=== PATIENT | female | born 2000 | race Caucasian/White ===

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

== ENCOUNTER → 2018-01-21 | Outpatient (CLI) | payer OTHER ==
[2018-01-21 19:33] LABS: HCG, SERUM QUANTITATIVE < 1.0 MIU/ML
== END ==
LOC: M SMT 12:06
DX: N93.8 Other specified abnormal uterine and vaginal bleeding (principal)
CPT/HCPCS: 84702

== ENCOUNTER → 2018-04-04 | Outpatient (CLI) | payer OTHER ==
[2018-04-04 19:40] LABS: BASO % 0.4 % (0.0-1.0); CONTROL LINE MONO RF C INT CTR LINE PRESENT; EOS % 0.1 % (0.0-3.0); HEMATOCRIT 41.4 % (36.0-47.0); IMMATURE GRANULOCYTE % 0.3 % (0-3.0); LYMPH # 1.8 10^3/uL (1.5-6.5); MEAN CORPUSCULAR HEMOGLOBIN 30.6 pg (27.0-33.0); MEAN CORPUSCULAR HGB CONC 33.8 g/dl (32.0-36.5); MEAN CORPUSCULAR VOLUME 90.6 fl (80.0-96.0); MONO # 0.5 10^3/uL (0.0-0.8); MONO % 6.4 % (0.0-5.0); MONO REFLEX EBV COMP NEGATIVE (NEGATIVE); NEUTROPHILS # 5.1 10^3/uL (1.8-7.7); NEUTROPHILS % 68.8 % (36.0-66.0); PLATELET COUNT, AUTOMATED 237 10^3/uL (150-450); RED BLOOD COUNT 4.57 10^6/uL (4.00-5.40); RED CELL DISTRIBUTION WIDTH 12.3 % (11.5-14.5); WHITE BLOOD COUNT 7.4 10^3/uL (4.0-10.0)
[2018-04-04 20:02] LABS: ALBUMIN/GLOBULIN RATIO 1.14 (1.00-1.93); ALKALINE PHOSPHATASE 76 U/L (45-117); ALT/SGPT 16 U/L (12-78); ANION GAP 9 MEQ/L (8-16); AST/SGOT 7 U/L (7-37); BILIRUBIN,TOTAL 1.6 MG/DL (0.2-1.0); BLOOD UREA NITROGEN 5 MG/DL (7-18); CALCIUM LEVEL 8.7 MG/DL (8.5-10.1); CARBON DIOXIDE LEVEL 26 MEQ/L (21-32); CHLORIDE LEVEL 108 MEQ/L (98-107); CREATININE FOR GFR 0.73 MG/DL (0.55-1.30); FREE T4 1.26 NG/DL (0.78-1.33); GLUCOSE, FASTING 89 MG/DL (70-100); POTASSIUM SERUM 4.1 MEQ/L (3.5-5.1); SODIUM LEVEL 143 MEQ/L (136-145); TOTAL PROTEIN 7.5 GM/DL (6.4-8.2)
[2018-04-08 15:32] LABS: EBV AB TO NUCLEAR ANTIGEN <18.0 U/mL (0.0-17.9); EBV VIRAL CAPSID AG IgG <18.0 U/mL (0.0-17.9); EBV VIRAL CAPSID AG IgM <36.0 U/mL (0.0-35.9); Lyme Disease IgG Ab 18 kDa Ban Absent (.); Lyme Disease IgG Ab 23 kDa Ban Absent (.); Lyme Disease IgG Ab 28 kDa Ban Absent (.); Lyme Disease IgG Ab 30 kDa Ban Absent (.); Lyme Disease IgG Ab 39 kDa Ban Absent (.); Lyme Disease IgG Ab 41 kDa Ban Absent (.); Lyme Disease IgG Ab 45 kDa Ban Absent (.); Lyme Disease IgG Ab 58 kDa Ban Absent (.); Lyme Disease IgG Ab 66 kDa Ban Absent (.); Lyme Disease IgG Ab 93 kDa Ban Absent (.); Lyme Disease IgG West Blot Int Negative (.); Lyme Disease IgG/IgM Antibodie 0.93 ISR (0.00-0.90); Lyme Disease IgM Ab 23 kDa Ban Absent (.); Lyme Disease IgM Ab 39 kDa Ban Absent (.); Lyme Disease IgM Ab 41 kDa Ban Absent (.); Lyme Disease IgM Ab Quantitati 1.16 index (0.00-0.79); Lyme Disease IgM West Blot Int Negative (.)
== END ==
LOC: M ADAMS 13:33
DX: R42 Dizziness and giddiness (principal)
CPT/HCPCS: 84443

== ENCOUNTER → 2018-06-13 | Outpatient (REF) | payer OTHER | LOC: M LAB REF 12:29 | DX: N30.01 Acute cystitis with hematuria (principal) ==

== ENCOUNTER → 2018-12-11 | Outpatient (CLI) | payer OTHER ==
[~2018-12-11] MED LIST: BACT800T5 PO; ESCI10TA2 PO; FLUO20CA19 PO; HYDR-3363; IBUP200C25 PO; NAPR-885 PO; NEXP1IMP SC; PYRI1TAB5 PO
[2018-12-11 17:41] LABS: BASO % 0.2 % (0.0-1.0); EOS % 0.1 % (0.0-3.0); HEMATOCRIT 44.6 % (36.0-47.0); LYMPH # 2.2 10^3/uL (1.5-6.5); LYMPH % 20.8 % (24.0-44.0); MEAN CORPUSCULAR HEMOGLOBIN 30.7 pg (27.0-33.0); MEAN CORPUSCULAR HGB CONC 33.6 g/dl (32.0-36.5); MEAN CORPUSCULAR VOLUME 91.2 fl (80.0-96.0); MONO # 0.6 10^3/uL (0.0-0.8); NEUTROPHILS # 7.6 10^3/uL (1.8-7.7); NEUTROPHILS % 72.6 % (36.0-66.0); PLATELET COUNT, AUTOMATED 222 10^3/uL (150-450); RED BLOOD COUNT 4.89 10^6/uL (4.00-5.40); WHITE BLOOD COUNT 10.5 10^3/uL (4.0-10.0)
[2018-12-11 18:12] LABS: ALBUMIN 4.4 GM/DL (3.2-5.2); ALT/SGPT 13 U/L (12-78); BILIRUBIN,TOTAL 1.4 MG/DL (0.2-1.0); BLOOD UREA NITROGEN 5 MG/DL (7-18); CARBON DIOXIDE LEVEL 26 MEQ/L (21-32); CHLORIDE LEVEL 109 MEQ/L (98-107); CREATININE FOR GFR 0.82 MG/DL (0.55-1.30); GLUCOSE, FASTING 104 MG/DL (70-100); POTASSIUM SERUM 3.6 MEQ/L (3.5-5.1); SODIUM LEVEL 142 MEQ/L (136-145); TOTAL PROTEIN 7.4 GM/DL (6.4-8.2)
== END ==
LOC: M LAB 16:56
PROVIDERS: ATTEND Physician Assistant
DX: R19.7 Diarrhea, unspecified (principal); R10.30 Lower abdominal pain, unspecified

== ENCOUNTER → 2018-12-11 | Outpatient (REF) | payer OTHER | LOC: M LAB REF 18:59 | PROVIDERS: ATTEND Physician Assistant | DX: R19.7 Diarrhea, unspecified (principal); R10.30 Lower abdominal pain, unspecified ==

== ENCOUNTER 2019-01-15 13:47 | Emergency (ER) | payer OTHER ==
[~2019-01-15] VITALS: Ht 160 cm; Wt 58.7 kg
[2019-01-15] MEDS ORDERED: ACET-683 PO (13:51)
[2019-01-15] MEDS ORDERED: ONDANSETRON 4 MG ORAL DISINTEGRATING TAB (Q0162 PER 1MG) PO ONE (15:15)
--- NOTE | 2019-01-15 15:58 | REP ---
Head CT without contrast: History: Head injury. Comparison study: October 01, 2013. CT findings: Bone window settings demonstrate an intact bony calvarium. There is no evidence of skull fracture or incidental bony calvarial lesion. The visualized paranasal sinuses appear clear. No intraorbital abnormality is seen. On soft tissue window setting images; the lateral, third, and fourth ventricles are normal in size and position. Olvera-white differentiation pattern is normal above and below the tentorium. There are is no evidence of intracranial hemorrhage. No mass, edema, infarction, or midline shift is seen. No extra-axial fluid collection is appreciated. Impression: Negative noncontrast head CT. Electronically Signed by Andrew Perez MD 01/15/2019 03:50 P
[2019-01-15 16:17] VITALS: BP 111/79
== END 2019-01-15 16:41 | disposition home or self-care (01) ==
LOC: M ED 13:47
DX: S09.90XA Unspecified injury of head, initial encounter (principal); W22.8XXA Striking against or struck by other objects, initial encounter; Y92.89 Other specified places as the place of occurrence of the external cause; Y99.0 Civilian activity done for income or pay; Z88.0 Allergy status to penicillin; F17.210 Nicotine dependence, cigarettes, uncomplicated
CPT/HCPCS: 36415; 70450; 84702; 99283; Q0162

== ENCOUNTER → 2019-02-26 | Outpatient (CLI) | payer OTHER ==
[~2019-02-26] MED LIST changes: +ACET-683 PO
[2019-02-26 19:34] LABS: FREE T4 0.9 NG/DL (0.78-1.33); THYROID STIMULATING HORMONE 0.78 uIU/ML (0.463-3.98)
[2019-02-26 19:35] LABS: LUTEINIZING HORMONE 2.1 mIU/mL; PROLACTIN 5.5 NG/ML
[2019-02-26 19:36] LABS: FOLLICLE STIMULATING HORMONE 6.6 mIU/mL
[2019-02-27 09:53] LABS: ESTRADIOL 35.4 PG/ML
== END ==
LOC: M LABDRWAD 14:14
PROVIDERS: ATTEND Obstetrics & Gynecology
DX: N97.9 Female infertility, unspecified (principal)

== ENCOUNTER 2019-05-13 20:32 | Emergency (ER) | payer OTHER ==
[~2019-05-13] VITALS: Ht 160 cm; Wt 52.3 kg
[2019-05-13 21:31] LABS: BILIRUBIN, URINE MANUAL OBSCURED (NEGATIVE); GLUCOSE, URINE (UA) MANUAL OBSCURED mg/dL (NEGATIVE); KETONE, URINE MANUAL OBSCURED mg/dL (NEGATIVE); UROBILINOGEN, URINE MANUAL OBSCURED mg/dl (NORMAL)
[2019-05-13 21:33] LABS: BACTERIA, URINE LARGE AMOUNT; HYALINE CAST, URINE NONE SEEN /lpf (0-1); SQUAMOUS EPITHELIAL CELL URINE LARGE AMOUNT /hpf (SMALL AMT)
[2019-05-13] MEDS ORDERED: NITROFURANTOIN (MACROBID) 100 MG CAP PO ONE (22:00)
[2019-05-13] MEDS ORDERED: PHENAZOPYRIDINE 100 MG TAB PO ONE (22:00)
[2019-05-13] MEDS ORDERED: PYRI1TAB5 PO (22:01)
[2019-05-13] MEDS ORDERED: MACR100C43 PO (22:01)
[2019-05-13 22:06] VITALS: BP 118/65
== END 2019-05-13 22:07 | disposition home or self-care (01) ==
LOC: M ED 20:32
DX: N39.0 Urinary tract infection, site not specified (principal); A56.2 Chlamydial infection of genitourinary tract, unspecified; Z88.0 Allergy status to penicillin

== ENCOUNTER 2019-05-15 15:31 | Emergency (ER) | payer OTHER ==
[~2019-05-15] VITALS: Ht 160 cm; Wt 52.5 kg
[~2019-05-15 15:31] MED LIST changes: +MACR100C43 PO
[2019-05-15 17:01] LABS: BASO % 0.4 % (0.0-1.0); EOS % 0.1 % (0.0-3.0); HEMATOCRIT 47.1 % (36.0-47.0); HEMOGLOBIN 15.7 g/dl (12.0-15.5); LYMPH # 1.3 10^3/uL (1.5-5.0); LYMPH % 15.7 % (24.0-44.0); MEAN CORPUSCULAR HEMOGLOBIN 31.7 pg (27.0-33.0); MEAN CORPUSCULAR HGB CONC 33.3 g/dl (32.0-36.5); MEAN CORPUSCULAR VOLUME 95.2 fl (80.0-96.0); MONO # 0.4 10^3/uL (0.0-0.8); MONO % 4.5 % (0.0-5.0); NEUTROPHILS # 6.5 10^3/uL (1.5-8.5); NEUTROPHILS % 79.1 % (36.0-66.0); PLATELET COUNT, AUTOMATED 212 10^3/uL (150-450); RED BLOOD COUNT 4.95 10^6/uL (4.00-5.40); WHITE BLOOD COUNT 8.2 10^3/uL (4.0-10.0)
[2019-05-15 17:12] LABS: APPEARANCE, URINE MANUAL HAZY (CLEAR); COLOR, URINE MANUAL ORANGE (YELLOW); SPECIFIC GRAVITY,URINE MANUAL 1.025 (1.002-1.035)
[2019-05-15 17:13] LABS: BILIRUBIN, URINE MANUAL OBSCURED (NEGATIVE); BLOOD URINE MANUAL OBSCURED (NEGATIVE); GLUCOSE, URINE (UA) MANUAL NEGATIVE (NEGATIVE); KETONE, URINE MANUAL OBSCURED mg/dL (NEGATIVE); LEUKOCYTE ESTERASE, URINE MAN OBSCURED (NEGATIVE); NITRITE, URINE MANUAL OBSCURED (NEGATIVE); PROTEIN, URINE MANUAL OBSCURED mg/dL (NEGATIVE); UROBILINOGEN, URINE MANUAL OBSCURED mg/dl (NORMAL)
[2019-05-15 17:14] LABS: BACTERIA, URINE NONE SEEN; HYALINE CAST, URINE NONE SEEN /lpf (0-1); RBC, URINE 0-1 /hpf (0-3); SQUAMOUS EPITHELIAL CELL URINE NONE SEEN /hpf (SMALL AMT); WBC, URINE 0-1 /hpf (0-3)
[2019-05-15] MEDS ORDERED: NS 1,000 ML IV ONE (17:30)
[2019-05-15] MEDS ORDERED: KETOROLAC 30 MG/ML VIAL (J1885) IV ONE (17:30)
[2019-05-15] MEDS ORDERED: ONDANSETRON 4MG/2ML VIAL (J2405) IV ONE (17:30)
[2019-05-15] MEDS ORDERED: ISOVUE-370 76% 100ML VIAL (Q9967) As Ordered ONE (17:30)
[2019-05-15 17:47] LABS: ALBUMIN 4.6 GM/DL (3.2-5.2); BILIRUBIN,DIRECT 0.2 MG/DL (0.0-0.2); BILIRUBIN,TOTAL 1.2 MG/DL (0.2-1.0)
--- NOTE | 2019-05-15 18:02 | REPVR ---
EXAM: CT Abdomen and Pelvis With Contrast EXAM DATE/TIME: 05/15/2019 5:28 PM CLINICAL HISTORY: 18 years old, female; Abdominal pain; Flank; Other: Bilat; Additional info: B flank/abd pain TECHNIQUE: Imaging protocol: Computed tomography of the abdomen and pelvis with intravenous contrast. Radiation optimization: All CT scans at this facility use at least one of these dose optimization techniques: automated exposure control; mA and/or kV adjustment per patient size (includes targeted exams where dose is matched to clinical indication); or iterative reconstruction. Contrast material: ISOVUE 370; Contrast volume: 100 ml; Contrast route: IV; COMPARISON: CT ABD PELVIS W/O CONTRAST 01/05/2014 1:56 AM FINDINGS: Liver: Normal. No mass. Gallbladder and bile ducts: Normal. No calcified stones. No ductal dilation. Pancreas: Normal. No ductal dilation. Spleen: Normal. No splenomegaly. Adrenals: Normal. No mass. Kidneys and ureters: Normal. No hydronephrosis. Stomach and bowel: Unremarkable. No obstruction. No mucosal thickening. Appendix: No evidence of appendicitis. Intraperitoneal space: Unremarkable. No free air. No significant fluid collection. Vasculature: Unremarkable. No abdominal aortic aneurysm. Lymph nodes: Unremarkable. No enlarged lymph nodes. Bladder: Unremarkable as visualized. Reproductive: Unremarkable as visualized. Bones/joints: Unremarkable. No acute fracture. Soft tissues: Unremarkable. IMPRESSION: No acute findings. Electronically signed by: Ritesh Berman On 05/15/2019 18:01:54 PM
[2019-05-15] MEDS ORDERED: CIPR-249 PO (20:24)
[2019-05-15] MEDS ORDERED: KETO10TAB PO (20:24)
[2019-05-15 20:50] VITALS: BP 125/69
== END 2019-05-15 20:52 | disposition home or self-care (01) ==
LOC: M ED 15:31
DX: N39.0 Urinary tract infection, site not specified (principal); F41.9 Anxiety disorder, unspecified; Z88.0 Allergy status to penicillin; Z79.899 Other long term (current) drug therapy
CPT/HCPCS: 74177; 80047; 80076; 81000; 83605; 83690; 84702; 85025; 87040; 96360; 96361; 96375; 99284; J1885; J2405; Q9967

== ENCOUNTER → 2019-06-26 | Outpatient (CLI) | payer OTHER ==
[~2019-06-26] MED LIST changes: +CIPR-249 PO; +KETO10TAB PO
[2019-06-26 20:53] LABS: BASO # 0.1 10^3/uL (0.0-0.2); BASO % 0.5 % (0.0-1.0); EOS # 0.1 10^3/uL (0.0-0.5); HEMATOCRIT 45.9 % (36.0-47.0); HEMOGLOBIN 15.1 g/dl (12.0-15.5); LYMPH # 2.2 10^3/uL (1.5-5.0); LYMPH % 22.1 % (24.0-44.0); MEAN CORPUSCULAR HEMOGLOBIN 30.6 pg (27.0-33.0); MEAN CORPUSCULAR HGB CONC 32.9 g/dl (32.0-36.5); MEAN CORPUSCULAR VOLUME 93.1 fl (80.0-96.0); MONO # 0.9 10^3/uL (0.0-0.8); MONO % 8.8 % (0.0-5.0); NEUTROPHILS # 6.8 10^3/uL (1.5-8.5); NEUTROPHILS % 67.2 % (36.0-66.0); PLATELET COUNT, AUTOMATED 253 10^3/uL (150-450); RED BLOOD COUNT 4.93 10^6/uL (4.00-5.40)
[2019-06-26 21:11] LABS: ALBUMIN 4.1 GM/DL (3.2-5.2); ALT/SGPT 19 U/L (12-78); BILIRUBIN,TOTAL 1.1 MG/DL (0.2-1.0); BLOOD UREA NITROGEN 7 MG/DL (7-18); CALCIUM LEVEL 8.6 MG/DL (8.5-10.1); CARBON DIOXIDE LEVEL 24 MEQ/L (21-32); CHLORIDE LEVEL 106 MEQ/L (98-107); FREE T4 1.39 NG/DL (0.78-1.33); GLUCOSE, FASTING 94 MG/DL (70-100); HCG, SERUM QUANTITATIVE 183 MIU/ML; SODIUM LEVEL 138 MEQ/L (136-145); TOTAL PROTEIN 7.7 GM/DL (6.4-8.2)
== END ==
LOC: M WUC 16:28
PROVIDERS: ATTEND Physician Assistant
DX: R63.4 Abnormal weight loss (principal); J20.9 Acute bronchitis, unspecified; Z33.1 Pregnant state, incidental

== ENCOUNTER → 2019-08-18 | Outpatient (CLI) | payer OTHER ==
[2019-08-18 17:08] LABS: BASO % 0.2 % (0.0-1.0); EOS % 0.1 % (0.0-3.0); HEMATOCRIT 42.2 % (36.0-47.0); HEMOGLOBIN 13.5 g/dl (12.0-15.5); LYMPH # 1.4 10^3/uL (1.5-5.0); LYMPH % 10.8 % (24.0-44.0); MONO # 0.6 10^3/uL (0.0-0.8); MONO % 4.3 % (0.0-5.0); PLATELET COUNT, AUTOMATED 262 10^3/uL (150-450); RED BLOOD COUNT 4.35 10^6/uL (4.00-5.40); WHITE BLOOD COUNT 13.1 10^3/uL (4.0-10.0)
[2019-08-18 20:02] LABS: CHLAMYDIA DNA AMPLIFICATION NEGATIVE (NEGATIVE); GC DNA AMPLIFICATION NEGATIVE (NEGATIVE)
[2019-08-19 13:25] LABS: HEPATITIS C VIRUS ABY INDEX 0.1 INDEX (<0.8); HIV 1&2 SCREEN CENTAUR NEGATIVE (NEGATIVE); RUBELLA IgG QUALITATIVE IMMUNE (IMMUNE)
== END ==
LOC: M WUC 14:12
PROVIDERS: ATTEND Advanced Practice Midwife
DX: Z34.81 Encounter for supervision of other normal pregnancy, first trimester (principal)

== ENCOUNTER → 2019-10-07 | Outpatient (CLI) | payer OTHER ==
--- NOTE | 2019-10-08 05:15 | REP ---
Clinical: Anatomical evaluation. Comparison: None . Findings: Examination demonstrates a single live intrauterine in cephalic presentation. motion is identified by technologist. Placenta is noted anteriorly, grade I and appears moderately heterogeneous and lobulated with poorly defined borders. There is no evidence for placenta previa or abruption. Cervix measures 3.8 cm in length and appears closed. No evidence for nuchal cord. Prominent amount of debris within the amniotic fluid. Gestational age by current measurements 18 weeks 3 days with REED 03/06/2020 . FHR equals 157 beats per minute. BPD 4.3 cm 19 weeks 0 days HC 15.5 cm 18 weeks 3 days AC 12.8 cm 18 weeks 3 days FL 2.8 cm 18 weeks 4 days HC/AC ratio 1.21 Estimated weight 242 grams ( 46th percentile). Anatomical assessment demonstrates normal structures including cranium, choroid plexus, cavum, cerebellum/posterior fossa, facial features, lungs, four-chamber heart/ventricular outflow tracts, diaphragm, stomach, cord insertion/three-vessel cord, kidneys/bladder, spine, and extremities. Impression: 1. Single live intrauterine in cephalic presentation. Anatomical assessment is complete and normal. 2. The placenta appears considerably heterogeneous and a lobulated with complex areas possibly reflecting multiple venous lakes although further investigation and follow-up may be warranted. There is no obvious evidence for placenta abruption. 3. Significant amount of complex fluid and debris noted in the amniotic fluid.
== END ==
LOC: M WHC 08:42
PROVIDERS: ATTEND Advanced Practice Midwife
DX: Z34.92 Encounter for supervision of normal pregnancy, unspecified, second trimester (principal); Z3A.18 18 weeks gestation of pregnancy

== ENCOUNTER → 2019-11-19 | Outpatient (REF) | payer OTHER ==
[~2019-11-19] MED LIST changes: -FLUO20CA19 PO; +FLUO20CA22 PO
[2019-11-19 14:35] LABS: HEMATOCRIT 39.7 % (36.0-47.0); HEMOGLOBIN 13.3 g/dl (12.0-15.5); MEAN CORPUSCULAR HEMOGLOBIN 33.2 pg (27.0-33.0); MEAN CORPUSCULAR HGB CONC 33.5 g/dl (32.0-36.5); PLATELET COUNT, AUTOMATED 241 10^3/uL (150-450); RED BLOOD COUNT 4.01 10^6/uL (4.00-5.40); WHITE BLOOD COUNT 13.8 10^3/uL (4.0-10.0)
== END ==
LOC: M PLALAB 10:04
PROVIDERS: ATTEND Obstetrics & Gynecology
DX: O99.332 Smoking (tobacco) complicating pregnancy, second trimester (principal)

== ENCOUNTER 2019-12-07 06:48 | Outpatient (CLI) | payer OTHER ==
[~2019-12-07] VITALS: Ht 160 cm; Wt 61.8 kg
[2019-12-07 07:05] VITALS: BP 119/75
[2019-12-07 08:02] VITALS: BP 126/82
--- NOTE | 2019-12-07 09:46 | IPNPDOC ---
Text Note Date of Service The patient was seen on 12/07/19. NOTE Subjective: Patient is a 19-year-old female who is a at 27.2 weeks gestation with an REED of 03/05/20 based off of her LMP and consistent with her first trimester ultrasound. Her has been complicated by smoking, anxiety, depression, panic disorder, ADHD (which she has not taken medication for in 2 years). She presented to labor and delivery with complaints of feeling dizzy, sweaty, and shaky when she got up to go to the bathroom at 0330. She also reported some cramping and a small amount of bloody mucous that she reports is coming from her rectum. She is very adamant that the mucous is coming from her rectum and not her vagina. She reports that since she has been in the hospital her cramping has improved. she states she hasn't eaten anything today. Objective: VS and labs: see below. FHR 130, moderate variability, positive accelerations. Contractions: uterine irritability noted that resolved after fluid intake. EFM appropriate for gestational age. A+O x3. Respiratory rate is regular with no use of accessory muscles. Abdomen gravid and soft without tenderness to palpation. Physical perineal and rectal exam performed. Small he morrhoid that was not inflamed was noted. No discharge or mucous noted at introitus. Assessment: IUP at 27.2 weeks gestation, hypogylcemic episode, rectal mucous. Plan: Patient discharged to home. Reviewed glucose tolerance test results with no anemia but 1 hour glucose test of 48. Patient encouraged to increase fluid intake and to eat every 2-3 hours. Reviewed appropriate diet to help maintain blood sugar and decrease hypoglycemic events. Given note for work so she can take a break every 2-3 hours to have a snack. labor precautions reviewed. Reviewed access to care, kick count, labor signs and danger signs to report. She is to go to her routine OB appointment on 12/17/19 Rosie AVALOS, I+O Rosie AVALOS, I+O Vital Signs Date Time Temp Pulse Resp B/P (MAP) Pulse Ox O2 Delivery O2 Flow Rate FiO2 12/07/19 07:05 98.3 85 16 119/75 (90) 100 Room Air ARMIDA CASTILLO CNM Dec 07, 2019 09:46
[2019-12-07 15:15] LABS: APPEARANCE, URINE CLEAR (CLEAR); BACTERIA, URINE AUTO NEGATIVE (NEGATIVE); BILIRUBIN, URINE AUTO NEGATIVE (NEGATIVE); BLOOD, URINE BLOOD NEGATIVE (NEGATIVE); COLOR, URINE STRAW (YELLOW); GLUCOSE, URINE (UA) AUTO NEGATIVE (NEGATIVE); KETONE, URINE AUTO NEGATIVE (NEGATIVE); LEUKOCYTE ESTERASE, URINE AUTO NEGATIVE (NEGATIVE); NITRITE, URINE AUTO NEGATIVE (NEGATIVE); PROTEIN, URINE AUTO NEGATIVE (NEGATIVE); RBC, URINE AUTO 0 /HPF (0-3); SQUAMOUS EPITHELIAL CELL UR AU 0 /HPF (0-6); UROBILINOGEN, URINE AUTO 0.2 mg/dL (0.0-2.0); WBC, URINE AUTO 0 /HPF (0-3)
== END 2019-12-07 09:51 | disposition home or self-care (01) ==
LOC: M LDO 06:48
PROVIDERS: ATTEND Specialist
DX: O99.810 Abnormal glucose complicating pregnancy (principal); E16.2 Hypoglycemia, unspecified; O99.333 Smoking (tobacco) complicating pregnancy, third trimester; F17.200 Nicotine dependence, unspecified, uncomplicated; O99.343 Other mental disorders complicating pregnancy, third trimester; F32.9 Major depressive disorder, single episode, unspecified; F41.0 Panic disorder [episodic paroxysmal anxiety]; F90.9 Attention-deficit hyperactivity disorder, unspecified type; Z3A.27 27 weeks gestation of pregnancy

== ENCOUNTER → 2020-02-15 | Outpatient (REF) | payer OTHER | LOC: M SFHCWAGY 17:29 | PROVIDERS: ATTEND Advanced Practice Midwife | DX: O99.333 Smoking (tobacco) complicating pregnancy, third trimester (principal) ==

== ENCOUNTER 2020-02-18 02:47 | Inpatient (IN) | payer OTHER ==
[2020-02-18] VITALS (40 sets, daily range): BP systolic 98–174; BP diastolic 55–93
[~2020-02-18] VITALS: Ht 160 cm; Wt 63.5 kg
[2020-02-18] MEDS ORDERED: LACTATED RINGER'S 1000 ML IV STA (06:11)
[2020-02-18] MEDS ORDERED: LR 1,000 ML IV SCH (06:11)
[2020-02-18 06:46] LABS: HEMATOCRIT 42.5 % (36.0-47.0); HEMOGLOBIN 14.2 g/dl (12.0-15.5); MEAN CORPUSCULAR HEMOGLOBIN 31.4 pg (27.0-33.0); MEAN CORPUSCULAR HGB CONC 33.4 g/dl (32.0-36.5); PLATELET COUNT, AUTOMATED 238 10^3/uL (150-450); RED BLOOD COUNT 4.52 10^6/uL (4.00-5.40); WHITE BLOOD COUNT 22.9 10^3/uL (4.0-10.0)
--- NOTE | 2020-02-18 07:07 | HPEPDOC ---
Obstetrical History & Physical General Date of Admission Feb 18, 2020 at 06:09 Primary Care Physician: ARMIDA CASTILLO CNM History of Present Illness Patient is a at 37.5 weeks gestation with an REED of 03/05/20 based off of her LMP and consistent with her first trimester ultrasound. She initiated care in her first trimester of . Her has been complicated by anxiety, depression, panic disorder, ADHD, smoker. She is not taking any medications for her psychiatric issues. She reports contractions that started last night at 0130. She reports active movement, scant bloody show. She denies leaking of fluid. 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 deficit disorder, Depression * Smoker: current smoker Alcohol: Denies Drugs: denies Abuse Violence Screening Have you been hit/kicked/slapp: No Have you been sexually assault: No Allergies Coded Allergies: Penicillins (Verified Allergy, Unknown, 01/15/19) Physical Examination Physical Examination GENERAL: Alert and oriented times three. BREAST: . ABDOMEN: Gravid and non-tender to touch. FETUS: Is vertex (VTX) by sterile vaginal examination (SVE), fetus is vertex (VTX) by Axel. HEART RATE: Regular rate and rhythm. LUNGS: Clear to auscultation (CTA). EXTREMITIES: No edema. No clonus. Deep tendon reflexes (DTRs) + 2. Vital Signs/I&O Vital Signs Date Time Temp Pulse Resp B/P (MAP) Pulse Ox O2 Delivery O2 Flow Rate FiO2 02/18/20 03:16 96.9 89 16 117/70 (86) Room Air Laboratory Data 24H LABS Laboratory Tests 2 02/18/20 06:18: Serology Scanned Report Hepatitis B Testing Urine Culture: No Growth Pertinent Laboratoy Data Blood Type: O+ RBC Antibody Screen: Negative HIV: Negative Hepatitis B: Negative Hepatitis C: Negative Rapid Plasma Reagin: Nonreactive Rubella: Immune Chlamydia/Gonorrhea: Negative Group B Streptococcus: Positive Glucose Tolerance Test: 48 Vaginal Examination Dilation: 4 cm Effacement: 100% Station: 0 Presentation: Cephalic presentation Position: Vertex (occiput) Assessment Heart Rate (FHR): 120 Variability: Moderate Accelerations: Positive Decelerations: None Tocometer Contractions: Yes Frequency: regular Multi-drug resistant Organism: No history of MDRO Assessment/Plan Assessment IUP at 37.5 week gestation GBS negative Category I FHR tracing active labor Plan Admit to L&D. OOB ad marta. Diet:clears. Group B Streptococcus (GBS) negative. Labs and intravenous (IV) per unit protocol. Anesthesia consult per patient's request. Lactated Ringers (LR): Bolus 800 mL, then at 125 mL/hr. Anticipate cervical change and normal spontaneous delivery (). C-S as appropriate. ARMIDA CASTILLO CNM Feb 18, 2020 07:07
[2020-02-18] MEDS ORDERED: FENTANYL 2MCG/ML ROPIVACAINE 0.2% IN 0.9% NACL 100ML IVBAG As Ordered ONE (07:09)
[2020-02-18] MEDS ORDERED: OXYTOCIN 30 UNITS IN 0.9% NaCl 500ML IV BAG (J2590) As Ordered ONE (07:48)
[2020-02-18] MEDS ORDERED: EPIDURAL/PCA KEYS XX PRN (08:45)
[2020-02-18] MEDS ORDERED: ePHEDrine SULFATE 25 MG/5 ML(5MG/ML) SYRINGE IV PRN (08:45)
[2020-02-18] MEDS ORDERED: EPIDURAL COMMENT XX SCH (08:45)
[2020-02-18] MEDS ORDERED: ONDANSETRON 4MG/2ML VIAL IV PRN ×2 (08:45→15:15)
[2020-02-18] MEDS ORDERED: diphenhydrAMINE 50MG/ML VIAL (J1200) IV PRN (08:45)
[2020-02-18] MEDS ORDERED: REFRIGERATOR IV KEYS XX PRN (08:45)
[2020-02-18] MEDS ORDERED: LACTATED RINGER'S 1000 ML IV PRN (08:45)
[2020-02-18] MEDS ORDERED: NALOXONE INJ 0.4MG/1ML VIAL (J2310 PER 1MG) IV PRN (08:45)
[2020-02-18] MEDS ORDERED: FENTANYL/ROPIVACAINE/NACL BAG 100 ML EPIDURAL SCH (08:45)
[2020-02-18] MEDS: PRENATAL VITAMINS CHEWABLE TABLET PO SCH (09:00)
[2020-02-18] MEDS ORDERED: OXYTOCIN DRIP 30 UNITS in IV 1 EA IV SCH (13:59)
[2020-02-18] MEDS ORDERED: DIBUCAINE 1% OINTMENT 30GM TOP PRN (14:00)
[2020-02-18] MEDS ORDERED: DOCUSATE SODIUM 100 MG CAP PO PRN (14:00)
[2020-02-18] MEDS ORDERED: MEASLES,MUMPS,RUBELLA VACCINE INJ (MMR-II) (90707) SC SCH (14:00)
[2020-02-18] MEDS ORDERED: MOM 30ML SUSPENSION UDC PO PRN (14:00)
[2020-02-18] MEDS ORDERED: ANUSOL HC CREAM 30GM TOP PRN (14:00)
[2020-02-18] MEDS ORDERED: METHYLERGONOVINE MALEATE 0.2 MG TAB PO PRN (14:00)
[2020-02-18] MEDS ORDERED: RHOGAM 300 MCG (1500 IU) INJ (J2790) IM SCH (14:00)
[2020-02-18] MEDS ORDERED: IBUPROFEN 600 MG TAB PO PRN (14:00)
[2020-02-18] MEDS ORDERED: ACETAMINOPHEN TAB 650MG DOSE (2X325MG) PO PRN (14:00)
[2020-02-18] MEDS ORDERED: ACETAMINOPHEN 500 MG TAB PO PRN (14:00)
[2020-02-18] MEDS: IBUPROFEN 800 MG TAB PO PRN (14:47)
[2020-02-18] MEDS ORDERED: ONDANSETRON 4MG/2ML VIAL As Ordered ONE (14:49)
--- NOTE | 2020-02-18 15:19 | DNPDOC ---
[facility] Delivery Note Delivery Note DATE OF DELIVERY: 02/18/2020 TIME OF : 1324 GENDER:, Male. APGARS: 8 and 9. WEIGHT: 2810 grams or 6 pounds 3 ounces. LACERATIONS:. Bilateral labial ANESTHESIA: Epidural. ESTIMATED BLOOD LOSS: 300ml COUNTS: 5 laparotomy sponges accounted for prior to after delivery. 2 sharps removed delivery field. DELIVERY NOTE: 02/18/2020 at 1324, Mrs. Nicholas a 19-year-old 1, now para 1, had a nurse controlled spontaneous vaginal delivery of viable male , Apgars 8 and 9. Weight was 2010 g, 6 lbs. 3 oz. Head was delivered [occiput anterior (OA). Nuchal cord was manually reduced followed by delivery of the shoulders and corpus. was handed to mom with a good cry. Cord was clamped times two and was cut. Placenta was then drained and delivered grossly intact. A premixed bag of 500 mL of normal saline with 30 units of Pitocin was then bolused along with uterine massage until the uterus was firm. On inspection,. There was bilateral labial laceration which was repaired with 3-0 Vicryl. On reinspection, cervix, vagina, perineum was grossly intact and hemostatic. Mom and baby in recovery on stable condition. AGUS KUHN MD. Feb 18, 2020 15:19
[2020-02-19] MEDS: IBUPROFEN 800 MG TAB PO PRN ×2 (05:36→16:09)
[2020-02-19 06:40] VITALS: BP 107/62
--- NOTE | 2020-02-19 07:21 | IPNPDOC ---
Progress Note Date of Service: Feb 19, 2020 Day#: 1 Progress Note SUBJECT: Doing well without complaints. Ambulating, voiding and pain is well-c ontrolled. Reports minimal lochia. Bottle feeding. OBJECTIVE: VITAL SIGNS: Within normal limits, afebrile. Alert and oriented times three. Abdomen: Fundus firm at U-2. Soft, NTTP. Ext: neg calf tenderness. ASSESSMENT: day #1 status post normal spontaneous vaginal delivery. Recovering in stable condition. PLAN: 1. Continue routine care 2. Discharge plans for tomorrow VS, I&O, 24H, Fishbone Vital Signs/I&O Vital Signs Date Time Temp Pulse Resp B/P (MAP) Pulse Ox O2 Delivery O2 Flow Rate FiO2 02/19/20 06:40 97.1 60 18 107/62 (77) 02/18/20 18:00 95 Room Air I&O- Last 24 Hours up to 6 AM 02/19/20 06:00 Intake Total 1602 ml Output Total 500 ml Balance 1102 ml Laboratory Data 24H LABS Laboratory Tests 2 02/18/20 15:30: Bedside Glucose (Misc Panel) 79 AGUS KUHN MD. Feb 19, 2020 07:21
[2020-02-19] MEDS: PRENATAL VITAMINS CHEWABLE TABLET PO SCH (08:23)
[2020-02-19 18:07] VITALS: BP 110/58
[2020-02-20 05:11] VITALS: BP 99/55
[2020-02-20] MEDS: PRENATAL VITAMINS CHEWABLE TABLET PO SCH (09:26)
== END 2020-02-20 13:05 | disposition home or self-care (01) | DRG 560 ==
LOC: M LDO 02:47 → M LDI 06:09 → M OBS 16:01
PROVIDERS: ADMIT Advanced Practice Midwife; ATTEND Obstetrics & Gynecology
PROC: 10E0XZZ Delivery of Products of Conception, External Approach (ICD-10-PCS; principal; 2020-02-18)
PROC: 0HQ9XZZ Repair Perineum Skin, External Approach (ICD-10-PCS; 2020-02-18)
DX: O99.334 Smoking (tobacco) complicating childbirth (principal); F17.210 Nicotine dependence, cigarettes, uncomplicated; O69.82X0 Labor and delivery complicated by other cord entanglement, without compression, not applicable or unspecified; Z3A.37 37 weeks gestation of pregnancy; Z37.0 Single live birth; O99.824 Streptococcus B carrier state complicating childbirth; O70.0 First degree perineal laceration during delivery

== ENCOUNTER → 2020-11-04 | Outpatient (REF) | payer OTHER ==
[~2020-11-04] MED LIST changes: +ESCI10TA16 PO; -ESCI10TA2 PO; +MONO0.25 PO; +NAPR-837 PO
== END ==
LOC: M SFHCWAGY 18:58
PROVIDERS: ATTEND Advanced Practice Midwife
DX: Z01.411 Encounter for gynecological examination (general) (routine) with abnormal findings (principal)

== ENCOUNTER 2020-11-07 11:02 | Emergency (ER) | payer OTHER ==
[~2020-11-07] VITALS: Ht 160 cm; Wt 51.3 kg
[~2020-11-07 11:02] MED LIST changes: -MONO0.25 PO; -NAPR-837 PO
[2020-11-07] MEDS ORDERED: MONO0.25 PO (11:15)
[2020-11-07] MEDS ORDERED: ACETAMINOPHEN 325 MG TAB PO ONE (11:35)
[2020-11-07 12:03] LABS: BASO % 0.5 % (0.0-1.0); EOS % 0.7 % (0.0-3.0); HEMATOCRIT 43.5 % (36.0-47.0); HEMOGLOBIN 14.1 g/dl (12.0-15.5); LYMPH # 1.7 10^3/uL (1.5-5.0); LYMPH % 30.4 % (24.0-44.0); MEAN CORPUSCULAR HEMOGLOBIN 29.9 pg (27.0-33.0); MEAN CORPUSCULAR HGB CONC 32.4 g/dl (32.0-36.5); MEAN CORPUSCULAR VOLUME 92.2 fl (80.0-96.0); MONO # 0.4 10^3/uL (0.0-0.8); MONO % 6.1 % (2.0-8.0); NEUTROPHILS # 3.6 10^3/uL (1.5-8.5); NEUTROPHILS % 62.1 % (36.0-66.0); PLATELET COUNT, AUTOMATED 199 10^3/uL (150-450); RED BLOOD COUNT 4.72 10^6/uL (4.00-5.40); WHITE BLOOD COUNT 5.7 10^3/uL (4.0-10.0)
--- NOTE | 2020-11-07 12:22 | REP ---
INDICATION: llq pain. COMPARISON: 07/03/2017. TECHNIQUE: Transabdominal and transvaginal scanning performed. FINDINGS: Uterine dimensions are 7.5 x 3.8 x 4.9 cm. Endometrial echo is 3 mm in AP dimension and centrally placed. Few punctate echogenic foci are seen along the anterior margin of the endometrial echo complex, which may represent tiny calcifications. There is no endometrial fluid collection. The bladder measures 3.7 x 2.8 x 7.6 cm. The right ovary has dimensions of 2.5 x 1.6 x 2.4 cm. It's Doppler flow is normal with a resistive index of 0.47. The left ovary dimensions are 2.6 x 1.5 x 2.5 cm. It's Doppler flow was normal with resistive index of 0.60. There is no adnexal mass identified. No free fluid is seen in the cul-de-sac. IMPRESSION: Negative pelvic ultrasound. <Electronically signed by Aquilino Olvera > 11/07/20 [id number]
[2020-11-07 12:25] LABS: BLOOD UREA NITROGEN 8 MG/DL (7-18); CALCIUM LEVEL 8.7 MG/DL (8.5-10.1); CARBON DIOXIDE LEVEL 28 MEQ/L (21-32); CHLORIDE LEVEL 110 MEQ/L (98-107); CREATININE FOR GFR 0.66 MG/DL (0.55-1.30); GLOMERULAR FILTRATION RATE > 60.0 (>60); GLUCOSE, FASTING 84 MG/DL (70-100); SODIUM LEVEL 139 MEQ/L (136-145)
[2020-11-07] MEDS ORDERED: NAPR-837 PO (12:56)
[2020-11-07 13:07] VITALS: BP 121/69
== END 2020-11-07 13:20 | disposition home or self-care (01) ==
LOC: M ED 11:02
DX: S39.011A Strain of muscle, fascia and tendon of abdomen, initial encounter (principal); F41.0 Panic disorder [episodic paroxysmal anxiety]; F32.9 Major depressive disorder, single episode, unspecified; F90.9 Attention-deficit hyperactivity disorder, unspecified type; Z88.0 Allergy status to penicillin; Y93.9 Activity, unspecified; Y92.9 Unspecified place or not applicable; Y99.9 Unspecified external cause status

== ENCOUNTER 2020-11-09 14:37 | Emergency (ER) | payer OTHER ==
[~2020-11-09] VITALS: Ht 160 cm; Wt 51.3 kg
[~2020-11-09 14:37] MED LIST changes: +MONO0.25 PO; +NAPR-837 PO
[2020-11-09] MEDS ORDERED: VENL37.598 (14:50)
[2020-11-09 15:43] LABS: BASO % 0.3 % (0.0-1.0); EOS % 0.3 % (0.0-3.0); HEMATOCRIT 41.6 % (36.0-47.0); HEMOGLOBIN 13.6 g/dl (12.0-15.5); LYMPH # 1.9 10^3/uL (1.5-5.0); LYMPH % 27.2 % (24.0-44.0); MEAN CORPUSCULAR HGB CONC 32.7 g/dl (32.0-36.5); MEAN CORPUSCULAR VOLUME 91.8 fl (80.0-96.0); MONO # 0.4 10^3/uL (0.0-0.8); MONO % 6.4 % (2.0-8.0); NEUTROPHILS # 4.5 10^3/uL (1.5-8.5); NEUTROPHILS % 65.5 % (36.0-66.0); PLATELET COUNT, AUTOMATED 195 10^3/uL (150-450); RED BLOOD COUNT 4.53 10^6/uL (4.00-5.40); WHITE BLOOD COUNT 6.9 10^3/uL (4.0-10.0)
[2020-11-09] MEDS ORDERED: NS 1,000 ML IV ONE (16:15)
[2020-11-09] MEDS ORDERED: KETOROLAC 30 MG/ML 1ML VIAL IV ONE (16:15)
[2020-11-09 16:19] LABS: ALBUMIN 4.2 GM/DL (3.2-5.2); ALT/SGPT 16 U/L (12-78); BILIRUBIN,TOTAL 0.7 MG/DL (0.2-1.0); BLOOD UREA NITROGEN 10 MG/DL (7-18); CALCIUM LEVEL 8.6 MG/DL (8.5-10.1); CARBON DIOXIDE LEVEL 28 MEQ/L (21-32); CHLORIDE LEVEL 110 MEQ/L (98-107); CREATININE FOR GFR 0.69 MG/DL (0.55-1.30); GLOMERULAR FILTRATION RATE > 60.0 (>60); GLUCOSE, FASTING 104 MG/DL (70-100); LIPASE 96 U/L (73-393); POTASSIUM SERUM 3.7 MEQ/L (3.5-5.1); SODIUM LEVEL 143 MEQ/L (136-145); TOTAL PROTEIN 6.8 GM/DL (6.4-8.2)
[2020-11-09] MEDS ORDERED: ISOVUE-370 76% 100ML VIAL As Ordered ONE (16:23)
--- NOTE | 2020-11-09 16:56 | REP ---
INDICATION: LLQ and L flank pain x 10 days. COMPARISON: 05/15/2019 TECHNIQUE: Axial contrast-enhanced images from the lung bases to the pubic symphysis using 100 cc Isovue 370 intravenous contrast material. Coronal and sagittal reformations obtained. This CT examination was performed using the following dose reduction techniques: Automated exposure control, adjustment of mA and/or kv according to the patient's size, and the use of iterative reconstruction technique. FINDINGS: Evaluation of the enteric system demonstrates mild/moderate fecal stasis without evidence for obstruction or obvious acute inflammatory process. There is evidence for jejunal-jejunal intussusception in the left lower quadrant (series 201; images 82-92) without associated inflammatory changes or obstruction. This may represent a transient finding. No obvious associated adenopathy or mass lesion as the lead point is identified. Liver, spleen, pancreas, gallbladder, bilateral adrenal glands and kidneys are normal. Pelvis demonstrates normal bladder and age-appropriate uterus/adnexa. No ascites. No free air. No adenopathy. Abdominal aorta and vasculature normal. Musculoskeletal structures are intact. Lung bases are clear. IMPRESSION: 1. Nonspecific jejunal-jejunal intussusception in the left lower quadrant without associated acute. This may represent transient process and may be correlated with physical examination. 2. Otherwise normal CT of the abdomen and pelvis. <Electronically signed by Trey Clarke > 11/09/20 [id number]
[2020-11-09] MEDS ORDERED: KETO10TAB PO (18:33)
[2020-11-09 19:09] VITALS: BP 113/68
--- NOTE | 2020-11-10 06:46 | ED PDOC ---
Post-Departure Follow-Up ct abd/p faxed to [facility] and dr esquivel for fu Lyida Pelayo MD Nov 10, 2020 06:46
== END 2020-11-09 19:29 | disposition home or self-care (01) ==
LOC: M ED 14:37
DX: K56.1 Intussusception (principal); Z79.899 Other long term (current) drug therapy; F17.200 Nicotine dependence, unspecified, uncomplicated; Z88.0 Allergy status to penicillin
CPT/HCPCS: 74177; 80053; 81001; 83690; 84702; 85025; 87086; 96361; 96374; 99284; J1885; Q9967

== ENCOUNTER 2021-07-24 09:10 | Emergency (ER) | payer MEDICAID, OTHER ==
[~2021-07-24] VITALS: Ht 160 cm; Wt 51.6 kg
[~2021-07-24 09:10] MED LIST changes: +VENL37.598
--- OUTSIDE RECORDS SUMMARY | 2021-07-24 09:17 | CCD ---
Continuity of Care Document (CCD) Created on: 07/10/2021 Erwin Nicholas External Reference #: [id number] : 2000 Sex: Female Author Author Erwin CORDERO Organization Unknown Address [address] [place] [address] Phone [phone] Care Team Providers Care Solar Pv Installer Name Role Phone ToledoLeisa AUTM [phone] Problems Active Problems Provider Date Syncope and collapse Gold Lui M.D. Onset: 11/04/2020 Near syncope Gold Lui M.D. Onset: 11/04/2020 Social History Type Date Description Comments Sex Unknown Tobacco Use Start: Unknown Patient is a current smoker, smo kes every day Allergies and adverse reactions Active Allergies Criticality Reaction | Severity Comments Date Amoxicillin Unable to assess criticality 11/04/2020 Penicillins Unable to assess criticality 11/04/2020 Medications Active Medications SIG Qnty Indications Ordering Provide r Date Prozac 20mg Capsules patient takes once a day Unknown Immunizations Description No Information Available Vital Signs Date Vital Result Comment 06/13/2021 2:02pm Respiratory Rate 12 /min Height 63 inches 5'3" Weight 114.00 lb BMI (Body Mass Index) 20.2 kg/m2 [place] Body Weight 115 lb 12/01/2020 11:07am Respiratory Rate 12 /min Height 63 inches 5'3" Weight 114.00 lb BMI (Body Mass Index) 20.2 kg/m2 [place] Body Weight 115 lb Results Description No Information Available Procedures Date Code Description Status 06/13/2021 01131 Office/Outpatient Established [facility] MDM 40-54 Min Completed Medical Devices Description No Information Available Encounters Type Date Location Provider Dx Diagnosis Office Visit 06/13/2021 1:30p Main office - [place] Gold byrd M.D. R55 Syncope and collapse Assessments Date Code Description Provider 06/13/2021 R55 Syncope and collapse Gold gill M.D. Plan of Treatment Future Appointment(s):* 08/18/2021 11:30 am - Ans/VS at [facility] * 09/28/2021 2:30 pm - Gold Lui M.D. at [facility] Functional Status Description No Information Available Mental Status Description No Information Available Referrals Description No Information Available
--- OUTSIDE RECORDS SUMMARY | 2021-07-24 09:17 | CCD | Continuity of Care Document ---
Author Author Erwin TREJO M.D. Organization Unknown Address [address] [place] [id number] Phone [phone] Care Team Providers Care Oil Burner Installer Name Role Phone Leisa [place] HONG AUTM [phone] Problems Active Problems Provider Date Syncope and collapse Gold Trejo M.D. Onset: 11/04/2020 Near syncope Gold Trejo M.D. Onset: 11/04/2020 Social History Type Date [...] lb BMI (Body Mass Index) 20.2 kg/m2 [place] Body Weight 115 lb 12/01/2020 11:07am Respiratory Rate 12 /min Height 63 inches 5'3" Weight 114.00 lb BMI (Body Mass Index) 20.2 kg/m2 [place] Body Weight 115 lb Results Description No Information Available Procedures Date Code Description Status 06/13/2021 97650 Office/Outpatient Established [facility] MDM 40-54 Min Completed Medical Devices Description No Information Available Encounters Type Date Location Provider Dx Diagnosis Office Visit 06/13/2021 1:30p Main office - [place] Gold byrd M.D. R55 Syncope and collapse Assessments Date Code Description Provider 06/13/2021 R55 Syncope and collapse Gold gill M.D. Plan of Treatment Future Appointment(s):* 08/18/2021 11:30 am - Ans/VS at [facility] * 07/19/2021 11:00 am - EEG at [facility] * 09/28/2021 2:30 pm - Gold Trejo M.D. at [facility] Functional Status Description No Information Available Mental Status Description No Information Available Referrals Description No Information Available
--- OUTSIDE RECORDS SUMMARY | 2021-07-24 09:18 | CCD | Continuity of Care Document ---
Author Author Erwin TREJO M.D. Organization Unknown Address [address] [place] [id number] Phone [phone] Care Team Providers Care Egg Sorter Name Role Phone Leisa [place] HONG AUTM [phone] Problems Active Problems Provider Date Syncope and [...] lb BMI (Body Mass Index) 20.2 kg/m2 [place] Body Weight 115 lb 12/01/2020 11:07am Respiratory Rate 12 /min Height 63 inches 5'3" Weight 114.00 lb BMI (Body Mass Index) 20.2 kg/m2 [place] Body Weight 115 lb Results Description No Information Available Procedures Date Code Description Status 06/13/2021 99883 Office/Outpatient Established [facility] MDM 40-54 Min Completed Medical Devices Description No Information Available Encounters Type Date Location Provider Dx Diagnosis Office Visit 06/13/2021 1:30p Main office - [place] Gold byrd M.D. R55 Syncope and collapse Assessments Date Code Description Provider 06/13/2021 R55 Syncope and collapse Gold gill M.D. Plan of Treatment Future Appointment(s):* 09/28/2021 2:30 pm - Gold Trejo M.D. at Main office - [place] Functional Status Description No Information Available Mental Status Description No Information Available Referrals Description No Information Available
--- OUTSIDE RECORDS SUMMARY | 2021-07-24 09:18 | CCD ---
Author Author [facility] Organization [facility] Address Unknown Phone Unavailable Care Team Providers Care Inspector Toys Name Role Phone Leisa Toledo Unavailable PROBLEMS Type Condition ICD9-CM Code QQP68-HB Code Onset Dates Condition S tatus W/U Status Risk SNOMED Code Notes Problem Depression F32.9 Active confirmed 11906429 Problem Loss of appetite R63.0 Active confirmed 798 23041 Problem Cigarette nicotine dependence without complication F17.210 Active confirmed 90663842 Problem Recurrent major depressive disorder, in partial remission F33.41 Active confirmed 82407906 Problem Anxiety F41.9 Active confirmed 72863304 Problem Attention deficit hyperactivity disorder (ADHD), unspecified ADHD type F90.9 Active confirmed 346011504 Problem Nicotine dependence, cigarettes, uncomplicated F17 .210 Active confirmed 02722957 Problem Supervision of other normal Z34.80 Ac tive confirm 007254414 Problem Cigarette smoker F17.210 Active confirmed 65 880660 Problem Generalized anxiety disorder F41.1 Active confirme d 76284112 ALLERGIES Allergen (clinical drug ingredient) Drug/Non Drug Allergy do cumented on EMR Reaction Allergy Type Onset Date Status ketorolac Ketorolac Tromethamine(ND Code:[address]-75) Rash Drug Allergy Active Penicillin (For Allergies Use Only) Hives Drug Allerg y Active tramadol Tramadol HCl(ND Code:[address]-34) Rash Drug Aller gy Active ENCOUNTERS from 1998 to 2021-04-27 Encounter Location Date Provider Diagnosis [facility] [address] [place] [address] Apr, Leisa Toledo Cigarette smoker F17.210 ; Recurrent karlos or depressive disorder, in partial remission F33.41 ; Generalized anxiety disorder F41.1 ; Syncope and collapse R55 and Attention deficit hyperactivity disorder (ADHD), unspecified ADHD type F90.9 IMMUNIZATIONS Vaccine Route Administration Date Status Influenza 18 yrs & older Flublok IM Intramuscular Jul 09, 2019 Administered TDAP 0.5mL (Boostrix) ID Intradermal December 31, 2019 Administer ed SOCIAL HISTORY Tobacco Use: Social History Observation Description Date Details (start date - stop date) Current Smoker Sex Assigned At : Social History Observation Description Sex Assigned At Unknown Education: Question Answer Notes Level of Education: Finished High School Audit Question Answer Notes Total Score: 1 Interpretation: Alcohol Education Language: Question Answer Notes Languages spoken: Lebanese Judaism: Question Answer Notes Judaism 08 [employer] Domestic Violence: Question Answer Notes Status: none Drug and Alcohol Question Answer Notes Total Score: 0 Interpretation: No problems reported Alcohol Screening: Question Answer Notes Did you have a drink containing alcohol in the past year? No Points 0 Interpretation Negative Tobacco Use: Question Answer Notes Are you a: current smoker How many cigarettes a day do you smoke? 6-10 Are you interested in quitting? Not ready to quit Counseled the patient on smoking effects, education provided 10/17/2020 REASON FOR REFERRAL No Information VITAL SIGNS Weight 110 lbs Apr, Height 63 in Apr, BMI 19.48 kg/m2 Apr, Heart Rate 69 /min Apr, Respiratory Rate 18 /min Apr, Temperature 98.4 degrees Fahrenheit Apr, Oximetry 97 Apr, Blood pressure systolic 102 mm Hg Apr, Blood pressure diastolic 62 mm Hg Apr, MEDICATIONS Medication SIG (Take, Route, Frequency, Duration) Notes Start Da te End Date Status Omeprazole 40 MG 1 capsule Orally Once a day for 30 day(s) May, Not-Taking Effexor XR 37.5 MG 1 capsule in the morning Orally Once a day fo r 30 day(s) Oct, Not-Taking Sprintec 28 0.25-35 MG-MCG 1 tablet Orally Once a day 2020 Not-Taking PROzac 20 MG 1 capsule Orally Once a day Active Ondansetron 4 MG 1 tablet on the tongue and allow to diss olve Orally Once a day Not-Taking Concerta 36 MG 1 tablet in the morning Orally Once a day Not-Taking Proctocort 1 % 1 [address] Thr ee times a day as needed for 2 weeks for hemorrhoids Not-Taking 28-0.8 MG 1 tablet Orally Once a day for 30 day(s) May, Not-Taking PROCEDURES No Information RESULTS No Results REASON FOR VISIT 6 month med to help focus? MEDICAL (GENERAL) HISTORY Type Description Date Medical History Depression/Anxiety Medical History ADHD Medical History Panic disorder Medical History syncope Surgical History [place] teeth extraction 2013 Hospitalization History childbirth 02/2020 Goals Section No Information Health Concerns No Information MEDICAL EQUIPMENT No Information MENTAL STATUS No Information FUNCTIONAL STATUS No Information ASSESSMENTS Encounter Date Diagnosis Assessment Notes Treatment Notes Treatm ent Clinical Notes Apr, Cigarette smoker (ICD-10 - F17.210) Pt counselled heavily on the importance of tobacco abstinence and the dangers not quiting may pose. Discussed various options for cessation with patient. Apr, Recurrent major depressive d isorder, in partial remission (ICD-10 - F33.41) I rec [facility]. Pt is agreeable. Apr, Generalized anxiety disorder (ICD-10 - F41.1) Apr, Syncope and collapse (ICD-10 - R55) Pt needs to change her PCP on her insuance and then I think [facility] will cont to see her to complete her work up. Apr, Attention deficit hyperactiv ity disorder (ADHD), unspecified ADHD type (ICD-10 - F90.9) She needs to complete her Neuro workup, we talked about this today. PLAN OF TREATMENT Treatment Notes Assessment Notes Clinical Notes Cigarette smoker Pt counselled heavily on the importance of tobacco abstinence and the dangers not quiting may pose. Discussed various options for cessation with patient. Recurrent major depressive disorder, in partial remiss ion I rec [facility]. Pt is agreeable. Syncope and collapse Pt needs to change her PCP o n her insuance and then I think [facility] will cont to see her to complete her work up. Attention deficit hyperactivity disorder (ADHD), unspe cified ADHD type She needs to complete her Neuro workup, we talked about this today. Next Appt Details 6 Months Reason: Provider Name:Leisa Toledo, 2021-10-16 09:30:00 AM, [address], , [place], [id number], Insurance Providers Payer Name Payer Address Payer Phone Insured Name Patient Relati onship to Insured Coverage Start Date Coverage End Date FORMERLY [facility] [employer] [facility] [address] [facility] [phone] [place] [employer] self
--- OUTSIDE RECORDS SUMMARY | 2021-07-24 09:18 | CCD ---
Author Author [facility] Organization [facility] Address Unknown Phone Unavailable Care Team Providers Care Wardrobe Image Consultant Name Role Phone ARUN, Guero HAMM PA Unavailable Unavailable LETTIERE, Guero HAMM PA Unavailable Unavailable LETTIERE, Guero HAMM PA Unavailable Unavailable LETTIERE, Guero HAMM PA Unavailable Unavailable LETTIERE, Guero HAMM PA Unavailable Unavailable LETTIERE, Guero HAMM PA Unavailable Unavailable LETTIERE, Guero HAMM PA Unavailable Unavailable LETTIERE, Guero HAMM PA Unavailable Unavailable LETTIERE, Guero HAMM PA Unavailable Unavailable LETTIERE, Guero HAMM PA Unavailable Unavailable LETTIERE, Guero HAMM PA Unavailable Unavailable LETTIERE, Guero HAMM PA Unavailable Unavailable LETTIERE, Guero HAMM PA Unavailable Unavailable LETTIERE, Guero HAMM PA Unavailable Unavailable LETTIERE, Guero HAMM PA Unavailable Unavailable LETTIERE, Guero HAMM PA Unavailable Unavailable LETTIERE, Guero HAMM PA Unavailable Unavailable LETTIERE, Guero HAMM PA Unavailable Unavailable LETTIERE, A NORIS PA Unavailable Unavailable LETTIERE, A NORIS PA Unavailable Unavailable LETTIERE, Guero HAMM PA Unavailable Unavailable LETTIERE, A NORIS PA Unavailable Unavailable LETTIERE, Guero HAMM PA Unavailable Unavailable LETTIERE, Guero HAMM PA Unavailable Unavailable LETTIERE, Guero HAMM PA Unavailable Unavailable LETTIERE, A NORIS PA Unavailable Unavailable LETTIERE, A NORIS PA Unavailable Unavailable LETTIERE, A NORIS PA Unavailable Unavailable LETTIERE, A NORIS PA Unavailable Unavailable LETTIERE, A NORIS PA Unavailable Unavailable LETTIERE, A NORIS PA Unavailable Unavailable DESTINEY, IVA PA Unavailable Unavailable DESTINEY, IVA PA Unavailable Unavailable DESTINEY, IVA PA Unavailable Unavailable DESTINEY, IVA PA Unavailable Unavailable DESTINEY, IVA PA Unavailable Unavailable DESTINEY, IVA PA Unavailable Unavailable DESTINEY, IVA PA Unavailable Unavailable DESTINEY, IVA PA Unavailable Unavailable DESTINEY, IVA PA Unavailable Unavailable DESTINEY, IVA PA Unavailable Unavailable DESTINEY, IVA PA Unavailable Unavailable DESTINEY, IVA PA Unavailable Unavailable DESTINEY, IVA PA Unavailable Unavailable DESTINEY, IVA PA Unavailable Unavailable DESTINEY, IVA PA Unavailable Unavailable DESTINEY, IVA PA Unavailable Unavailable DESTINEY, IVA PA Unavailable Unavailable DESTINEY, IVA PA Unavailable Unavailable DESTINEY, IVA PA Unavailable Unavailable DESTINEY, IVA PA Unavailable Unavailable DESTINEY, IVA PA Unavailable Unavailable DESTINEY, IVA PA Unavailable Unavailable DESTINEY, IVA PA Unavailable Unavailable DESTINEY, IVA PA Unavailable Unavailable DESTINEY, IVA PA Unavailable Unavailable DESTINEY, IVA PA Unavailable Unavailable DESTINEY, IVA PA Unavailable Unavailable DESTINEY, IVA PA Unavailable Unavailable DESTINEY, IVA PA Unavailable Unavailable DESTINEY, IVA PA Unavailable Unavailable DESTINEY, IVA PA Unavailable Unavailable DESTINEY, IVA PA Unavailable Unavailable DESTINEY, IVA PA Unavailable Unavailable DESTINEY, IVA PA Unavailable Unavailable DESTINEY, IVA PA Unavailable Unavailable DESTINEY, IVA PA Unavailable Unavailable Bridgette Lui MD Unavailable Unavailable Bridgette Lui MD Unavailable Unavailable Bridgette Lui MD Unavailable Unavailable Bridgette Lui MD Unavailable Unavailable Bridgette Lui MD Unavailable Unavailable Bridgette Lui MD Unavailable Unavailable Bridgette Lui MD Unavailable Unavailable Bridgette Lui MD Unavailable Unavailable Bridgette Lui MD Unavailable Unavailable Bridgette Lui MD Unavailable Unavailable Bridgette Lui MD Unavailable Unavailable Bridgette Lui MD Unavailable Unavailable Bridgette Lui MD Unavailable Unavailable Bridgette Lui MD Unavailable Unavailable Bridgette Lui MD Unavailable Unavailable Bridgette Lui MD Unavailable Unavailable Bridgette Lui MD Unavailable Unavailable Bridgette Lui MD Unavailable Unavailable Bridgette Lui MD Unavailable Unavailable Bridgette Lui MD Unavailable Unavailable Bridgette Lui MD Unavailable Unavailable Bridgette Lui MD Unavailable Unavailable Bridgette Lui MD Unavailable Unavailable Bridgette Lui MD Unavailable Unavailable Bridgette Lui MD Unavailable Unavailable Bridgette Lui MD Unavailable Unavailable Bridgette Lui MD Unavailable Unavailable Bridgette Lui MD Unavailable Unavailable Bridgette Lui MD Unavailable Unavailable Bridgette Lui MD Unavailable Unavailable Bridgette Lui MD Unavailable Unavailable Bridgette Lui MD Unavailable Unavailable Bridgette Lui MD Unavailable Unavailable Bridgette Lui MD Unavailable Unavailable Bridgette Lui MD Unavailable Unavailable Bridgette Lui MD Unavailable Unavailable Bridgette Lui MD Unavailable Unavailable Bridgette Lui MD Unavailable Unavailable Bridgette Lui MD Unavailable Unavailable Bridgette Lui MD Unavailable Unavailable Bridgette Lui MD Unavailable Unavailable Bridgette Lui MD Unavailable Unavailable Bridgette Lui MD Unavailable Unavailable Bridgette Lui MD Unavailable Unavailable Bridgette Lui MD Unavailable Unavailable Bridgette Lui MD Unavailable Unavailable Bridgette Lui MD Unavailable Unavailable Bridgette Lui MD Unavailable Unavailable Bridgette Lui MD Unavailable Unavailable Bridgette Lui MD Unavailable Unavailable Bridgette Lui MD Unavailable Unavailable Bridgette Lui MD Unavailable Unavailable Bridgette Lui MD Unavailable Unavailable Bridgette Lui MD Unavailable Unavailable Bridgette Lui MD Unavailable Unavailable Bridgette Lui MD Unavailable Unavailable Sania, O Samah MD Unavailable Unavailable Sania, O Samah MD Unavailable Unavailable Sania, O Samah MD Unavailable Unavailable Sania, O Samah MD Unavailable Unavailable Sania, O Samah MD Unavailable Unavailable Sania, O Samah MD Unavailable Unavailable Sania, O Samah MD Unavailable Unavailable Sania, O Samah MD Unavailable Unavailable Sania, O Samah MD Unavailable Unavailable Sania, O Samah MD Unavailable Unavailable Sania, O Samah MD Unavailable Unavailable Sania, O Samah MD Unavailable Unavailable Sania, O Samah MD Unavailable Unavailable Sania, O Samah MD Unavailable Unavailable Sania, O Samah MD Unavailable Unavailable Sania, O Samah MD Unavailable Unavailable Sania, O Samah MD Unavailable Unavailable Sania, O Samah MD Unavailable Unavailable Sania, O Samah MD Unavailable Unavailable Sania, O Samah MD Unavailable Unavailable Sania, O Samah MD Unavailable Unavailable Sania, O Samah MD Unavailable Unavailable Sania, O Samah MD Unavailable Unavailable Re-disclosure Warning The records that you are about to access may contain information from federally-assisted alcohol or drug abuse programs. If such information is present, then the following federally mandated warning applies: This information has been disclosed to you from records protected by federal confidentiality rules (42 CFR part 2). The federal rules prohibit you from making any further disclosure of this information unless further disclosure is expressly permitted by the written consent of the person to whom it pertains or as otherwise permitted by 42 CFR part 2. A general authorization for the release of medical or other information is NOT sufficient for this purpose. The Federal rules restrict any use of the information to criminally investigate or prosecute any alcohol or drug abuse patient.The records that you are about to access may contain highly sensitive health information, the redisclosure of which is protected by Article 27-F of the [facility] Public Health law. If you continue you may have access to information: Regarding HIV / AIDS; Provided by facilities licensed or operated by the [facility] Office of Mental Health; or Provided by the [facility] Office for People With Developmental Disabilities. If such information is present, then the following [facility] mandated warning applies: This information has been disclosed to you from confidential records which are protected by state law. State law prohibits you from making any further disclosure of this information without the specific written consent of the person to whom it pertains, or as otherwise permitted by law. Any unauthorized further disclosure in violation of state law may result in a fine or skilled nursing sentence or both. A general authorization for the release of medical or other information is NOT sufficient authorization for further disc losure. Family History Family Member Name Family Member Gender Family Member Status Date o f Status Description Data Source(s) Unknown Unknown Problem MEDENT ([facility], ) Unknown Unknown Problem MEDENT ([facility] Encounters Encounter Providers Location Date Indications Data Source(s ) Outpatient Attender: Gold Lui MD Main office - [facility] 06/13/2021 01:30:00 PM EDT MEDENT ([facility], ) Unknown [address] [facility] [place] [address] 05/22/2021 12:00:00 AM EDT [facility] [address] [facility] [place] [address] 05/02/2021 12:00:00 AM EDT eCW1 ([facility] [place]) Outpatient [address] [facility] [address] 04/25/2021 12:00:00 AM EDT eCW1 ([facility] [place]) Outpatient Attender: NORIS linda 04/19/2021 05:40:00 PM EDT MEDENT ([facility] Unknown [address] [facility] [place] [address] 03/17/2021 12:00:00 AM EDT eCW1 ([facility] [place]) Unknown [address] [facility] [place] [address] 02/13/2021 12:00:00 AM EDT eCW1 ([facility] [place]) Unknown [address] [facility] [place] [address] 02/02/2021 12:00:00 AM EDT [facility]CW1 ([facility]) [place] [address] [facility] [address] [place] [address] 01/20/2021 12:00:00 AM EDT eCW1 ([facility]) [place] [address] [facility] [place] [address] 01/05/2021 12:00:00 AM EDT eCW1 ([facility]) [place] [address] [facility] [place] [address] 12/20/2020 12:00:00 AM EDT eCW1 ([facility]) [place] [address] [facility] [place] [address] 12/13/2020 12:00:00 AM EDT eCW1 ([facility]) Outpatient Attender: Gold Lui MD Main office [facility] 12/01/2020 10:45:00 AM EDT MEDENT ([facility]) [place] [address] [facility] [place] [address] 12/01/2020 12:00:00 AM EDT eCW1 ([facility]) [place] [address] [facility] [place] [address] 11/14/2020 12:00:00 AM EST eCW1 ([facility]) [place] [address] [facility] [place] [address] 11/11/2020 12:00:00 AM EST eCW1 ([facility]) Unknown [address] [facility] [place] [address] 11/11/2020 12:00:00 AM EST eCW1 ([facility]) Unknown [address] [facility] [place] [address] 11/09/2020 12:00:00 AM EST eCW1 ([facility]) Outpatient Attender: Gold Lui MD Main office [facility] 11/04/2020 07:30:00 AM EST MEDENT ([facility]) [place] [address] [facility] [place] [address] 11/04/2020 12:00:00 AM EST eCW1 ([facility]) Unknown [address] [facility] [place] [address] 11/04/2020 12:00:00 AM EST eCW1 ([facility]) Unknown [address] [facility] [place] [address] 11/02/2020 12:00:00 AM EST eCW1 ([facility]) [place] [address] [facility] [place] [address] 10/18/2020 12:00:00 AM EST eCW1 [facility] [place] [address] [facility] [place] [address] 10/17/2020 12:00:00 AM EST eCW1 ([facility]) [place] [address] [facility] [place] [address] 10/13/2020 12:00:00 AM EST eCW1 ([facility]) [place] [address] [facility] [place] [address] 09/14/2020 12:00:00 AM EST eCW1 ([facility]) Outpatient Attender: NORIS linda 09/10/2020 01:05:00 PM EST MEDENT ([facility]) [place] [address] [facility] [place] [address] 08/12/2020 12:00:00 AM EST eCW1 ([facility]) Outpatient Attender: IVA Mcconnell ry 05/25/2020 09:35:00 AM EDT MEDENT ([facility]) Immunizations Vaccine Date Status Description Data Source(s) COVID-19 VACCINE Moderna 02/09/2021 12:00:00 AM EDT completed [employer] Vaccine Series Complete: YESThis Data wa s Submitted to [facility] Via [employer]. COVID-19 VACCINE Moderna 01/12/2021 12:00:00 AM EDT completed [employer] Vaccine Series Complete: NOThis Data was Submitted to [facility] Via [employer]. Medications Medication Brand Name Start Date Product Form Dose Route Admi nistrative Instructions Pharmacy Instructions Status Indications Reaction Description Data Source(s) 24 HR venlafaxine 37.5 MG Extended Relea se Oral Capsule [Effexor] Effexor XR 37.5 MG Effexor XR 37.5 MG 11/04/2020 12:00:00 AM EST 1. 0 {capsule_in_the_morning} active Effexor XR 37.5 MG eCW1 ([facility]) Sprintec 28 0.25-35 MG-MCG Sprintec 28 0.25-35 MG-MCG 2020 12:00:00 AM EST 1.0 {tablet} active Sprintec 28 0.25-35 MG-MCG eCW1 ([facility]) Sprintec 28 0.25-35 MG-MCG Sprintec 28 0.25-35 MG-MCG 2020 12:00:00 AM EST 1.0 {tablet} active Sprintec 28 0.25-35 MG-MCG eCW1 ([facility]) 24 HR venlafaxine 37.5 MG Extended Relea se Oral Capsule [Effexor] Effexor XR 37.5 MG Effexor XR 37.5 MG 11/04/2020 12:00:00 AM EST 1. 0 {capsule_in_the_morning} active Effexor XR 37.5 MG eCW1 ([facility]) Sprintec 28 0.25-35 MG-MCG Sprintec 28 0.25-35 MG-MCG 2020 12:00:00 AM EST 1.0 {tablet} active Sprintec 28 0.25-35 MG-MCG eCW1 ([facility]) Sprintec 28 0.25-35 MG-MCG Sprintec 28 0.25-35 MG-MCG 2020 12:00:00 AM EST 1.0 {tablet} active Sprintec 28 0.25-35 MG-MCG eCW1 ([facility]) 24 HR venlafaxine 37.5 MG Extended Relea se Oral Capsule [Effexor] Effexor XR 37.5 MG Effexor XR 37.5 MG 11/04/2020 12:00:00 AM EST 1. 0 {capsule_in_the_morning} active Effexor XR 37.5 MG eCW1 ([facility]) 24 HR venlafaxine 37.5 MG Extended Relea se Oral Capsule [Effexor] Effexor XR 37.5 MG Effexor XR 37.5 MG 11/04/2020 12:00:00 AM EST 1. 0 {capsule_in_the_morning} active Effexor XR 37.5 MG eCW1 ([facility]) Sprintec 28 0.25-35 MG-MCG Sprintec 28 0.25-35 MG-MCG 2020 12:00:00 AM EST 1.0 {tablet} active Sprintec 28 0.25-35 MG-MCG eCW1 ([facility]) 24 HR venlafaxine 37.5 MG Extended Relea se Oral Capsule [Effexor] Effexor XR 37.5 MG Effexor XR 37.5 MG 11/04/2020 12:00:00 AM EST 1. 0 {capsule_in_the_morning} active Effexor XR 37.5 MG eCW1 ([facility]) Sprintec 28 0.25-35 MG-MCG Sprintec 28 0.25-35 MG-MCG 2020 12:00:00 AM EST 1.0 {tablet} active Sprintec 28 0.25-35 MG-MCG eCW1 ([facility]) Sprintec 28 0.25-35 MG-MCG Sprintec 28 0.25-35 MG-MCG 2020 12:00:00 AM EST 1.0 {tablet} active Sprintec 28 0.25-35 MG-MCG eCW1 ([facility]) 24 HR venlafaxine 37.5 MG Extended Relea se Oral Capsule [Effexor] Effexor XR 37.5 MG Effexor XR 37.5 MG 11/04/2020 12:00:00 AM EST 1. 0 {capsule_in_the_morning} active Effexor XR 37.5 MG eCW1 ([facility]) 24 HR venlafaxine 37.5 MG Extended Relea se Oral Capsule [Effexor] Effexor XR 37.5 MG Effexor XR 37.5 MG 11/04/2020 12:00:00 AM EST 1. 0 {capsule_in_the_morning} suspended Effex or XR 37.5 MG eCW1 ([facility]) 24 HR venlafaxine 37.5 MG Extended Relea se Oral Capsule [Effexor] Effexor XR 37.5 MG Effexor XR 37.5 MG 11/04/2020 12:00:00 AM EST 1. 0 {capsule_in_the_morning} active Effexor XR 37.5 MG eCW1 ([facility]) 24 HR venlafaxine 37.5 MG Extended Relea se Oral Capsule [Effexor] Effexor XR 37.5 MG Effexor XR 37.5 MG 11/04/2020 12:00:00 AM EST 1. 0 {capsule_in_the_morning} active Effexor XR 37.5 MG eCW1 ([facility]) 24 HR venlafaxine 37.5 MG Extended Relea se Oral Capsule [Effexor] Effexor XR 37.5 MG Effexor XR 37.5 MG 11/04/2020 12:00:00 AM EST 1. 0 {capsule_in_the_morning} active Effexor XR 37.5 MG eCW1 ([facility]) 24 HR venlafaxine 37.5 MG Extended Relea se Oral Capsule [Effexor] Effexor XR 37.5 MG Effexor XR 37.5 MG 11/04/2020 12:00:00 AM EST 1. 0 {capsule_in_the_morning} active Effexor XR 37.5 MG eCW1 ([facility]) 24 HR venlafaxine 37.5 MG Extended Relea se Oral Capsule [Effexor] Effexor XR 37.5 MG Effexor XR 37.5 MG 11/04/2020 12:00:00 AM EST 1. 0 {capsule_in_the_morning} active Effexor XR 37.5 MG eCW1 ([facility]) 24 HR venlafaxine 37.5 MG Extended Relea se Oral Capsule [Effexor] Effexor XR 37.5 MG Effexor XR 37.5 MG 11/04/2020 12:00:00 AM EST 1. 0 {capsule_in_the_morning} active Effexor XR 37.5 MG eCW1 ([facility]) Sprintec 28 0.25-35 MG-MCG Sprintec 28 0.25-35 MG-MCG 2020 12:00:00 AM EST 1.0 {tablet} active Sprintec 28 0.25-35 MG-MCG eCW1 ([facility]) 24 HR venlafaxine 37.5 MG Extended Relea se Oral Capsule [Effexor] Effexor XR 37.5 MG Effexor XR 37.5 MG 11/04/2020 12:00:00 AM EST 1. 0 {capsule_in_the_morning} active Effexor XR 37.5 MG eCW1 ([facility]) Sprintec 28 0.25-35 MG-MCG Sprintec 28 0.25-35 MG-MCG 2020 12:00:00 AM EST 1.0 {tablet} active Sprintec 28 0.25-35 MG-MCG eCW1 ([facility]) Sprintec 28 0.25-35 MG-MCG Sprintec 28 0.25-35 MG-MCG 2020 12:00:00 AM EST 1.0 {tablet} active Sprintec 28 0.25-35 MG-MCG eCW1 ([facility]) Sprintec 28 0.25-35 MG-MCG Sprintec 28 0.25-35 MG-MCG 2020 12:00:00 AM EST 1.0 {tablet} active Sprintec 28 0.25-35 MG-MCG eCW1 ([facility]) Sprintec 28 0.25-35 MG-MCG Sprintec 28 0.25-35 MG-MCG 2020 12:00:00 AM EST 1.0 {tablet} active Sprintec 28 0.25-35 MG-MCG eCW1 ([facility]) 24 HR venlafaxine 37.5 MG Extended Relea se Oral Capsule [Effexor] Effexor XR 37.5 MG Effexor XR 37.5 MG 11/04/2020 12:00:00 AM EST 1. 0 {capsule_in_the_morning} suspended Effex or XR 37.5 MG eCW1 ([facility]) Sprintec 28 0.25-35 MG-MCG Sprintec 28 0.25-35 MG-MCG 2020 12:00:00 AM EST 1.0 {tablet} active Sprintec 28 0.25-35 MG-MCG eCW1 ([facility]) 24 HR venlafaxine 37.5 MG Extended Relea se Oral Capsule [Effexor] Effexor XR 37.5 MG Effexor XR 37.5 MG 11/04/2020 12:00:00 AM EST 1. 0 {capsule_in_the_morning} active Effexor XR 37.5 MG eCW1 ([facility]) Sprintec 28 0.25-35 MG-MCG Sprintec 28 0.25-35 MG-MCG 2020 12:00:00 AM EST 1.0 {tablet} suspended Sprintec 28 0.25-35 MG-MCG eCW1 ([facility]) Sprintec 28 0.25-35 MG-MCG Sprintec 28 0.25-35 MG-MCG 2020 12:00:00 AM EST 1.0 {tablet} active Sprintec 28 0.25-35 MG-MCG eCW1 ([facility]) 24 HR venlafaxine 37.5 MG Extended Relea se Oral Capsule [Effexor] Effexor XR 37.5 MG Effexor XR 37.5 MG 11/04/2020 12:00:00 AM EST 1. 0 {capsule_in_the_morning} suspended Effex or XR 37.5 MG eCW1 ([facility]) 24 HR venlafaxine 37.5 MG Extended Relea se Oral Capsule [Effexor] Effexor XR 37.5 MG Effexor XR 37.5 MG 11/04/2020 12:00:00 AM EST 1. 0 {capsule_in_the_morning} active Effexor XR 37.5 MG eCW1 ([facility]) Sprintec 28 0.25-35 MG-MCG Sprintec 28 0.25-35 MG-MCG 2020 12:00:00 AM EST 1.0 {tablet} active Sprintec 28 0.25-35 MG-MCG eCW1 ([facility]) Insurance Providers Payer name Policy type / Coverage type Policy ID Covered libertarian ID Covered libertarian's relationship to hugo Policy Hugo Plan Information [facility] [place] [id number] 18 [id number] [facility] [place] [id number] 18 [id number] [facility] COMMUNITY PLAN MCDO [id number] SP [id number] [facility] COMM[facility]ITY [facility] [place] [id number] 18 [id number] [facility] COMMUNITY PLAN XIX [id number] 18 [id number] [facility] Health Maintenance Organization (HMO) [id number] Self [id number] [employer] [facility] [id number] SP [id number] [facility] Organization (HMO) [id number] Self [id number] [facility] Health Maintenance Organization (HMO) [id number] Self [id number] [facility] Health Maintenance Organization (HMO) [id number] Self [id number] [facility] COMMUNITY PLAN MCDO [id number] SP [id number] [facility] Health Maintenance Organization (HMO) [id number] Self [id number] [facility] Maintenance Organization (HMO) [id number] Self [id number] [facility] Health Maintenance Organization (HMO) [id number] Self [id number] [facility] Health Maintenance Organization [place] [id number] Self [id number] [facility] Health Maintenance [facility] ([facility] [id number] Self [id number] [facility] COMMUNITY PLAN [facility] [id number] SP [id number] [facility] COMMUNITY PLAN [facility] [id number] SP [id number] [facility] Health Maintenance Organization [place] [id number] Self [id number] [facility] Health Maintenance [facility] ([facility] [id number] Self [id number] [employer] [place] PPO [id number] [facility] Health Maintenance Organization ([facility] [id number] Self [id number] [employer] [id number] [employer] Health Maintenance [facility] ([facility] [id number] Self [facility](MCAID) S [id number] C [id number] SELF PAY P UNAVAILABLE C UNAVAILA BLE O BLUE [id number] SP [id number] [facility] COMMUNITY PLAN [facility] [id number] SP [id number] MEDICAID [id number] SP [id number] [facility] COMMUNITY PLAN [facility] [id number] SP [id number] [facility](MCAID) O [id number] S [id number] Problems, Conditions, and Diagnoses Code Display Name Description Problem Type Effective Dates Data Source(s) F90.9 338163342 Attention deficit hy peractivity disorder (ADHD), unspecified ADHD type Problem 04/25/2021 12:00:00 AM EDT eCW1 ([facility]) [id number] Near syncope Near syncope Problem 11/04/2020 12:00:00 A M EST MEDENT ([facility], ) [id number] Syncope and collapse Syncope and collapse Problem 11/04/2020 12:00:00 AM EST MEDENT ([facility], ) F41.1 [id number] Generalized anxiety disorder Problem 021 12:00:00 AM EST eCW1 ([facility]) F33.41 [id number] Recurrent major depressive disor sherri, in partial remission Problem 11/04/2020 12:00:00 AM EST eCW1 ([facility]) Surgeries/Procedures Procedure Description Date Indications Data Source(s) OFFICE OUTPATIENT VISIT 40 MINUTES 06/13/2021 12:00:00 AM EDT MEDENT ([facility], ) OFFICE OUTPATIENT VISIT 15 MINUTES 04/19/2021 12:00:00 AM EDT MEDENT ([facility]) Magnetic Resonance Angiogtaphy Head W/O Contrast Material(S) 11/23/2020 12:00:00 AM EDT MEDENT ([facility], ) Magnetic Resonance Angiogtaphy Head W/O Contrast Material(S) 11/23/2020 12:00:00 AM EDT MEDENT ([facility]) Magnetic Resonance Angiography Neck W/O Contrast Materials 11/23/2020 12:00:00 AM EDT MEDENT ([facility]) Magnetic Resonance Angiography Neck W/O Contrast Materials 11/23/2020 12:00:00 AM EDT MEDENT ([facility]) MRI BRAIN BRAIN STEM W/O CONTRAST MATERIAL 11/23/2020 12:00:00 AM EDT MEDENT ([facility], ) MRI BRAIN BRAIN STEM W/O CONTRAST MATERIAL 11/23/2020 12:00:00 AM EDT MEDENT ([facility], ) URINE TEST 11/04/2020 12:00:00 AM EST eCW1 ([facility]) Results ID Date Data Source [id number] 04/19/2021 12:00:00 AM EDT [facility] Name Value Range Interpretation Code Description Data Maureen rce(s) Supporting Document(s) SARS-CoV2 Rapid Antigen Negative [facility] This lab was reported by Jayson Olivia. ID Date Data Source PAP REQUEST FOR SERVICE 11/04/2020 12:00:00 AM EST eCW1 ([facility]) Name Value Range Interpretation Code Description Data Maureen rce(s) Supporting Document(s) PAP REQUEST FOR SERVICE eCW1 ( [facility]) ID Date Data Source [id number] 10/01/2020 12:30:00 PM EST [facility] Name Value Range Interpretation Code Description Data Maureen rce(s) Supporting Document(s) SARS-CoV-2 POSITIVE [facility] This lab was ordered by MITCHELL MOBLEY OWN [id number] and reported by [employer]. ID Date Data Source [id number] 10/01/2020 12:00:00 AM EST [facility] Name Value Range Interpretation Code Description Data Maureen rce(s) Supporting Document(s) SARS-CoV-2 RT-PCR positive [facility] This lab was ordered by [employer] and re ported by [employer]. Procedure Social History Code Duration Value Status Description Data Source(s ) Smoking 04/25/2021 12:00:00 AM EDT Current Smoker completed Curre nt Smoker eCW1 ([facility]) Smoking 04/25/2021 12:00:00 AM EDT Current Smoker completed Curre nt Smoker eCW1 ([facility]) Smoking 04/25/2021 12:00:00 AM EDT Current Smoker completed Curre nt Smoker eCW1 ([facility]) Smoking 02/19/2021 12:00:00 AM EDT Current Smoker completed Curre nt Smoker eCW1 ([facility]) Smoking 02/19/2021 12:00:00 AM EDT Current Smoker completed Curre nt Smoker eCW1 ([facility]) Smoking 11/22/2020 12:00:00 AM EDT Current Smoker completed Curre nt Smoker eCW1 ([facility]) Smoking 11/22/2020 12:00:00 AM EDT Current Smoker completed Curre nt Smoker eCW1 ([facility]) Smoking 11/22/2020 12:00:00 AM EDT Current Smoker completed Curre nt Smoker eCW1 ([facility]) Smoking 11/22/2020 12:00:00 AM EDT Current Smoker completed Curre nt Smoker eCW1 ([facility]) Smoking 11/22/2020 12:00:00 AM EDT Current Smoker completed Curre nt Smoker eCW1 ([facility]) Smoking 11/22/2020 12:00:00 AM EDT Current Smoker completed Curre nt Smoker eCW1 ([facility]) Smoking 11/11/2020 12:00:00 AM EST Current Smoker completed Curre nt Smoker eCW1 ([facility]) Smoking 11/11/2020 12:00:00 AM EST Current Smoker completed Curre nt Smoker eCW1 ([facility]) Smoking 11/11/2020 12:00:00 AM EST Current Smoker completed Curre nt Smoker eCW1 ([facility]) Smoking 11/11/2020 12:00:00 AM EST Current Smoker completed Curre nt Smoker eCW1 ([facility]) Smoking 11/11/2020 12:00:00 AM EST Current Smoker completed Curre nt Smoker eCW1 ([facility]) Smoking 11/04/2020 12:00:00 AM EST Current Smoker completed Curre nt Smoker eCW1 ([facility]) Smoking 11/04/2020 12:00:00 AM EST Current Smoker completed Curre nt Smoker eCW1 ([facility]) Smoking 10/17/2020 12:00:00 AM EST Current Smoker completed Curre nt Smoker eCW1 ([facility]) Smoking 10/17/2020 12:00:00 AM EST Current Smoker completed Curre nt Smoker eCW1 ([facility]) Smoking 09/29/2020 12:00:00 AM EST Former Smoker completed Former Smoker eCW1 ([facility]) Vital Signs ID Date Data Source UNK Name Value Range Interpretation Code Description Data Source(s) Respiratory rate 12 /min 12 /min MEDENT ( [facility], ) Body height 63 [in_i] 63 [in_i] MEDENT ([facility], ) 5'3" Body weight 114.00 [lb_av] 114.00 [lb_av] MEDEN T ([facility], ) Body mass index (BMI) [Ratio] 20.2 kg/m2 20.2 k g/m2 MEDENT ([facility], ) [place] body weight 115 [lb_av] 115 [lb_av] MEDEN T ([facility]) Body weight 110 [lb_av] 110 [lb_av] W1 ([facility]) Body height 63 [in_i] 63 [in_i] eCW1 ([facility]) Body mass index (BMI) [Ratio] 19.48 kg/m2 19.48 kg/m2 W1 ([facility]) Heart rate 69 /min 69 /min eCW1 ([facility]) Respiratory rate 18 /min 18 /min eCW1 ([facility]) Body temperature 98.4 [degF] 98.4 [degF] eCW1 ( [facility]) Systolic blood pressure 102 mm[Hg] 102 mm[Hg] e CW1 ([facility]) Diastolic blood pressure 62 mm[Hg] 62 mm[Hg] eCW1 ([facility]) Body temperature 98.4 [degF] 98.4 [degF] MEDENT ([facility], [facility]) Systolic blood pressure 113 mm[Hg] 113 mm[Hg] M EDENT ([facility], [facility]) Diastolic blood pressure 79 mm[Hg] 79 mm[Hg] MEDENT ([facility], [facility]) Heart rate 102 /min 102 /min MEDENT ([facility], [facility]) Respiratory rate 14 /min 14 /min MEDENT ( [facility], [facility]) Oxygen saturation in Arterial blood by Pulse oximetry 97 % 97 % MEDENT ([facility]) Body weight 110.00 [lb_av] 110.00 [lb_av] MEDEN T ([facility], [facility]) Body height 63 [in_i] 63 [in_i] MEDENT ([facility], [facility]) 5'3" Body mass index (BMI) [Ratio] 19.5 kg/m2 19.5 k g/m2 MEDENT ([facility], [facility]) Respiratory rate 12 /min 12 /min MEDENT ( [facility], ) Body height 63 [in_i] 63 [in_i] MEDENT ([facility], ) 5'3" Body weight 114.00 [lb_av] 114.00 [lb_av] MEDEN T ([facility], ) Body mass index (BMI) [Ratio] 20.2 kg/m2 20.2 k g/m2 MEDENT ([facility], ) [place] body weight 115 [lb_av] 115 [lb_av] MEDEN T ([facility], ) Body weight 115 [lb_av] 115 [lb_av] eCW1 ([facility]) Body height 63 [in_i] 63 [in_i] eCW1 ([facility]) Body mass index (BMI) [Ratio] 20.37 kg/m2 20.37 kg/m2 eCW1 ([facility]) Heart rate 98 /min 98 /min eCW1 ([facility]) Respiratory rate 18 /min 18 /min eCW1 ([facility]) Body temperature 98 [degF] 98 [degF] eCW1 ([facility]) Systolic blood pressure 100 mm[Hg] 100 mm[Hg] e CW1 ([facility]) Diastolic blood pressure 58 mm[Hg] 58 mm[Hg] eCW1 ([facility]) Body weight 115.8 [lb_av] 115.8 [lb_av] eCW1 ([facility]) Body height 63 [in_i] 63 [in_i] eCW1 ([facility]) Body mass index (BMI) [Ratio] 20.51 kg/m2 20.51 kg/m2 eCW1 ([facility]) Systolic blood pressure 114 mm[Hg] 114 mm[Hg] e CW1 ([facility]) Diastolic blood pressure 64 mm[Hg] 64 mm[Hg] eCW1 ([facility]) Body mass index (BMI) [Ratio] 20.2 kg/m2 20.2 k g/m2 MEDENT ([facility], ) Respiratory rate 12 /min 12 /min MEDENT ( [facility], ) Body height 63 [in_i] 63 [in_i] MEDENT ([facility], ) 5'3" Body weight 114.00 [lb_av] 114.00 [lb_av] MEDEN T ([facility], ) [place] body weight 115 [lb_av] 115 [lb_av] MEDEN T ([facility], ) Body weight 114 [lb_av] 114 [lb_av] eCW1 ([facility]) Body height 63 [in_i] 63 [in_i] eCW1 ([facility]) Body mass index (BMI) [Ratio] 20.19 kg/m2 20.19 kg/m2 eCW1 ([facility]) Heart rate 83 /min 83 /min eCW1 ([facility]) Respiratory rate 18 /min 18 /min eCW1 ([facility]) Body temperature 97.4 [degF] 97.4 [degF] eCW1 ( [facility]) Systolic blood pressure 108 mm[Hg] 108 mm[Hg] e CW1 ([facility]) Diastolic blood pressure 68 mm[Hg] 68 mm[Hg] eCW1 ([facility]) Systolic blood pressure 118 mm[Hg] 118 mm[Hg] M EDENT ([facility], [facility]) Diastolic blood pressure 60 mm[Hg] 60 mm[Hg] MEDENT ([facility], [facility]) Heart rate 66 /min 66 /min MEDENT ([facility], [facility]) Respiratory rate 14 /min 14 /min MEDENT ( [facility], [facility]) Oxygen saturation in Arterial blood by Pulse oximetry 99 % 99 % MEDENT ([facility], [facility]) Body temperature 98.0 [degF] 98.0 [degF] MEDENT [facility] Body weight 130.00 [lb_av] 130.00 [lb_av] MEDEN T ([facility], [facility]) Body height 63 [in_i] 63 [in_i] MEDENT ([facility]) 5'3" Body mass index (BMI) [Ratio] 23.0 kg/m2 23.0 k g/m2 MEDENT ([facility], [facility]) Body temperature 98.7 [degF] 98.7 [degF] MEDENT ([facility], [facility]) Heart rate 85 /min 85 /min MEDENT ([facility], [facility]) Systolic blood pressure 119 mm[Hg] 119 mm[Hg] M EDENT ([facility], [facility]) Diastolic blood pressure 76 mm[Hg] 76 mm[Hg] MEDENT ([facility], [facility]) Respiratory rate 20 /min 20 /min [facility] ( [facility]) Oxygen saturation in Arterial blood by Pulse oximetry 98 % 98 % [facility] ([facility], [facility]) Body height 63 [in_i] 63 [in_i] MEDENT ([facility], [facility]) 5'3" Body mass index (BMI) [Ratio] 22.1 kg/m2 22.1 k g/m2 [facility] ([facility], [facility]) Body weight 125.00 [lb_av] 125.00 [lb_av] MEDEN T ([facility], [facility]) Patient Treatment Plan of Care Planned Activity Planned Date Details Description Data Source (s) 24 HR venlafaxine 37.5 MG Extended Release Oral Capsul e [Effexor] 11/04/2020 12:00:00 AM EST eCW1 ([facility]) 24 HR venlafaxine 37.5 MG Extended Release Oral Capsul e [Effexor] 11/04/2020 12:00:00 AM EST eCW1 ([facility]) 24 HR venlafaxine 37.5 MG Extended Release Oral Capsul e [Effexor] 11/04/2020 12:00:00 AM EST eCW1 ([facility]) Sprintec 28 0.25-35 MG-MCG 11/04/2020 12:00:00 AM EST eCW1 ([facility]) 24 HR venlafaxine 37.5 MG Extended Release Oral Capsul e [Effexor] 11/04/2020 12:00:00 AM EST eCW1 ([facility]) Sprintec 28 0.25-35 MG-MCG 11/04/2020 12:00:00 AM EST eCW1 ([facility]) 24 HR venlafaxine 37.5 MG Extended Release Oral Capsul e [Effexor] 11/04/2020 12:00:00 AM EST eCW1 ([facility])
--- OUTSIDE RECORDS SUMMARY | 2021-07-24 09:18 | CCD ---
Author Author [facility] Organization [facility] Address Unknown Phone Unavailable Care Team Providers Care Contact Lens Blocker Name Role Phone Leisa Toledo Unavailable PROBLEMS Type Condition ICD9-CM Code [id number] Code Onset Dates Condition S tatus W/U Status Risk SNOMED Code Notes Problem Depression F32.9 Active confirmed 84014939 Problem Loss of appetite R63.0 Active confirmed 798 12564 Problem Cigarette nicotine dependence without complication F17.210 Active confirmed 54644155 Problem Recurrent major depressive disorder, in partial remission F33.41 Active confirmed 53684056 Problem Anxiety F41.9 Active confirmed 64587148 Problem Attention deficit hyperactivity disorder (ADHD), unspecified ADHD type F90.9 Active confirmed 116991855 Problem Nicotine dependence, cigarettes, uncomplicated F17 .210 Active confirmed 94744125 Problem Supervision of other normal Z34.80 Ac tive confirm 747667488 Problem Cigarette smoker F17.210 Active confirmed 65 374670 Problem Generalized anxiety disorder F41.1 Active confirme d 04336515 ALLERGIES Allergen (clinical drug ingredient) Drug/Non Drug Allergy do cumented on EMR Reaction Allergy Type Onset Date Status ketorolac Ketorolac Tromethamine(ND Code:[address]-91) Rash Drug Allergy Active Penicillin (For Allergies Use Only) Hives Drug Allerg y Active tramadol Tramadol HCl(ND Code:[address]-43) Rash Drug Aller gy Active ENCOUNTERS from 1998 to 2021-05-23 Encounter Location Date Provider Diagnosis [facility] [address] [place] [address] May, 2021 Leisa Toledo IMMUNIZATIONS Vaccine Route Administration Date Status Influenza [...] Education Language: Question Answer Notes Languages spoken: Thai Oriental Orthodox: Question Answer Notes Oriental Orthodox 08 Confucianism Domestic Violence: Question Answer Notes Status: none [...] REASON FOR REFERRAL No Information VITAL SIGNS No information MEDICATIONS Medication SIG (Take, Route, Frequency, Duration) Notes Start Da te End Date Status Concerta 36 MG 1 tablet in the morning Orally Once a day Not-Taking Effexor XR 37.5 MG 1 capsule in the morning Orally Once a day fo r 30 day(s) Oct, Not-Taking Proctocort 1 % 1 application Externally Thr ee times a day as needed for 2 weeks for hemorrhoids Not-Taking PROzac 20 MG 1 capsule Orally Once a day Active Omeprazole 40 MG 1 capsule Orally Once a day for 30 day(s) May, Not-Taking Woodson-Linyah 0.25-35 MG-MCG TAKE ONE TABLET BY MOUTH EVERY DAY for 84 Active Ondansetron 4 MG 1 tablet on the tongue and allow to diss olve Orally Once a day Not-Taking 28-0.8 MG 1 tablet Orally Once a day for 30 day(s) May, Not-Taking PROCEDURES No Information RESULTS No Results REASON FOR VISIT med request MEDICAL (GENERAL) HISTORY Type Description Date Medical History Depression/Anxiety Medical History ADHD Medical History Panic disorder Medical History syncope Surgical History [place] teeth extraction 2013 Hospitalization History childbirth 02/2020 [place]als [place] No Information Health Concerns No Information MEDICAL EQUIPMENT No Information MENTAL STATUS No Information FUNCTIONAL STATUS No Information ASSESSMENTS No Information PLAN OF TREATMENT Medication Medication Name Sig Start Date Stop Date Woodson-Linyah 0.25-35 MG-MCG TAKE ONE TABLET BY MOUTH EVERY DAY fo r 84 Next Appt Details Provider Name:Leisa Toledo, 2021-10-16 09:30:00 AM, [address], , [place], [address], Insurance Providers Payer Name Payer Address Payer Phone Insured Name Patient Relati onship to Insured Coverage Start Date Coverage End Date [facility] [employer] [facility] [address] [facility] [phone] [place] self
--- OUTSIDE RECORDS SUMMARY | 2021-07-24 09:18 | CCD ---
Author Author [facility] Organization [facility] Address Unknown Phone Unavailable Care Team Providers Care News Clerk Name Role Phone Leisa Toledo Unavailable PROBLEMS Type Condition ICD9-CM Code [id number] Code Onset Dates Condition S tatus W/U Status Risk SNOMED Code Notes Problem Depression F32.9 Active confirmed 85020837 Problem Loss of appetite R63.0 Active confirmed 798 05250 Problem Cigarette nicotine dependence without complication F17.210 Active confirmed 03363213 Problem Recurrent major depressive disorder, in partial remission F33.41 Active confirmed 92048278 Problem Anxiety F41.9 Active confirmed 10214801 Problem Attention deficit hyperactivity disorder (ADHD), unspecified ADHD type F90.9 Active confirmed 644582226 Problem Nicotine dependence, cigarettes, uncomplicated F17 .210 Active confirmed 77973279 Problem Supervision of other normal Z34.80 Ac tive confirm 338347995 Problem Cigarette smoker F17.210 Active confirmed 65 522200 Problem Generalized anxiety disorder F41.1 Active confirme d 45242607 ALLERGIES Allergen (clinical drug ingredient) Drug/Non Drug Allergy do cumented on EMR Reaction Allergy Type Onset Date Status ketorolac Ketorolac Tromethamine(ND Code:[address]-31) Rash Drug Allergy Active Penicillin (For Allergies Use Only) Hives Drug Allerg y Active tramadol Tramadol HCl(ND Code:[address]-04) Rash Drug Aller gy Active ENCOUNTERS from 1998 to 2021-05-03 Encounter Location Date Provider Diagnosis [facility] [address] [place] [address] Apr, Leisa Toledo IMMUNIZATIONS Vaccine Route Administration Date [...] Education Language: Question Answer Notes Languages spoken: Serbian Baptism: Question Answer Notes Baptism 08 Gnosticist Domestic Violence: Question Answer Notes Status: none [...] a day for 30 day(s) May, Not-Taking Mathews-Linyah 0.25-35 MG-MCG TAKE ONE TABLET BY MOUTH EVERY DAY for 84 Active Ondansetron 4 MG 1 tablet on the tongue and allow to diss olve Orally Once a day Not-Taking 28-0.8 MG 1 tablet Orally Once a day for 30 day(s) May, Not-Taking PROCEDURES No Information RESULTS No Results REASON FOR VISIT name has been changed on card MEDICAL (GENERAL) HISTORY Type Description Date Medical History Depression/Anxiety Medical History ADHD Medical History Panic disorder Medical History syncope Surgical History [place] teeth extraction 2013 Hospitalization History childbirth 02/2020 Goals Section No Information Health Concerns No Information MEDICAL EQUIPMENT No Information MENTAL STATUS No Information FUNCTIONAL STATUS No Information ASSESSMENTS No Information PLAN OF TREATMENT Medication Medication Name Sig Start Date Stop Date Mathews-Linyah 0.25-35 MG-MCG TAKE ONE TABLET BY MOUTH EVERY DAY fo r 84 Next Appt Details Provider Name:Leisa Toledo, 2021-10-16 09:30:00 AM, [address], , [place], [id number], Insurance Providers Payer Name Payer Address Payer Phone Insured Name Patient Relati onship to Insured Coverage Start Date Coverage End Date [facility] [employer] [facility] [address] [facility] [phone] [place] DE[place] self
[2021-07-24] MEDS ORDERED: DESV25TA PO (09:20)
--- OUTSIDE RECORDS SUMMARY | 2021-07-24 10:41 | CCD ---
Author Author [facility] Organization [facility] Address Unknown Phone Unavailable Care Team Providers Care Oral Health Therapist Name Role Phone ARUN, Guero HAMM PA Unavailable Unavailable LETTIERE, Guero HAMM PA Unavailable Unavailable LETTIERE, Guero HAMM PA Unavailable Unavailable LETTIERE, Guero HAMM PA Unavailable Unavailable LETTIERE, Guero HAMM PA Unavailable Unavailable LETTIERE, Guero HAMM PA Unavailable Unavailable LETTIERE, Guero HAMM PA Unavailable Unavailable LETTIERE, Guero HAMM PA Unavailable Unavailable LETTIERE, Geuro HAMM PA Unavailable Unavailable LETTIERE, Guero HAMM [...] Unavailable Unavailable DESTINEY, IVA PA Unavailable Unavailable DSETINEY, IVA PA Unavailable Unavailable Bridgette Lui MD [...] is protected by Article 27-F of the [facility] Public Health law. If you continue you may have access to information: Regarding HIV / AIDS; Provided by facilities licensed or operated by the [facility] Office of Mental Health; or Provided by the [facility] Office for People With Developmental Disabilities. If such information is present, then the following [facility] mandated warning applies: This information has been [...] law may result in a fine or group home sentence or both. A general authorization for the release of medical or other information is NOT sufficient authorization for further disc losure. Family History Family Member Name Family Member Gender Family Member Status Date o f Status Description Data Source(s) Unknown Unknown Problem MEDENT ([facility], ) Unknown Unknown Problem MEDENT ([facility] Encounters Encounter Providers Location Date Indications Data Source(s ) Outpatient Attender: Gold Lui MD Main office - [facility] 06/13/2021 01:30:00 PM EDT MEDENT ([facility], ) Unknown [address] [facility] [address] [address] 05/22/2021 12:00:00 AM EDT [facility] [address] [facility] [address] [address] 05/02/2021 12:00:00 AM EDT [facility]CW1 ([facility]) Outpatient [address] [facility] [address] 04/25/2021 12:00:00 AM EDT eCW1 ([facility]) Outpatient Attender: NORIS linda 04/19/2021 05:40:00 PM EDT MEDENT ([facility]) Unknown [address] [facility] [address] [address] 03/17/2021 12:00:00 AM EDT eCW1 ([facility]) Unknown [address] [facility] [address] [address] 02/13/2021 12:00:00 AM EDT eCW1 ([facility]) Unknown [address] [facility] [address] [address] 02/02/2021 12:00:00 AM EDT [facility]CW1 ([facility]) [place] [address] [facility] [address] [place] [address] 01/20/2021 12:00:00 AM EDT eCW1 ([facility]) [place] [address] [facility] [place] [address] 01/05/2021 12:00:00 AM EDT eCW1 ([facility]) [place] [address] [facility] [place] [address] 12/20/2020 12:00:00 AM EDT eCW1 ([facility]) [place] [address] [facility] [place] [address] 12/13/2020 12:00:00 AM EDT eCW1 ([facility]) Outpatient Attender: Gold Lui MD Main office [facility] 12/01/2020 10:45:00 AM EDT MEDENT ([facility]) [place] [address] [facility] [place] [address] 12/01/2020 12:00:00 AM EDT eCW1 ([facility]) [place] [address] [facility] [place] [address] 11/14/2020 12:00:00 AM EST eCW1 ([facility]) [place] [address] [facility] [place] [address] 11/11/2020 12:00:00 AM EST eCW1 ([facility]) [place] [address] [facility] [place] [address] 11/11/2020 12:00:00 AM EST eCW1 ([facility]) [place] [address] [facility] [place] [address] 11/09/2020 12:00:00 AM EST eCW1 ([facility]) Outpatient Attender: Gold Lui MD Main office [facility] 11/04/2020 07:30:00 AM EST MEDENT ([facility]) [place] [address] [facility] [address] [place] [address] 11/04/2020 12:00:00 AM EST eCW1 ([facility]) [place] [address] [facility] [place] [address] 11/04/2020 12:00:00 AM EST [facility]1 ([facility]) [place] [address] [facility] [place] [address] 11/02/2020 12:00:00 AM EST [facility]CW1 ([facility]) [place] [address] [facility] [place] [address] 10/18/2020 12:00:00 AM EST [facility]CW1 [facility] [place] [address] [facility] [place] [address] 10/17/2020 12:00:00 AM EST [facility]CW1 ([facility]) [place] [address] [facility] [place] [address] 10/13/2020 12:00:00 AM EST [facility]CW1 ([facility]) [place] [address] [facility] [place] [address] 09/14/2020 12:00:00 AM EST eCW1 ([facility]) Outpatient Attender: NORIS linda 09/10/2020 01:05:00 PM EST [facility] ([facility]) [place] [address] [facility] [place] [address] 08/12/2020 12:00:00 AM EST eCW1 ([facility]) Outpatient Attender: IVA Mcconnell ry 05/25/2020 09:35:00 AM EDT MEDENT ([facility] Immunizations Vaccine Date Status Description Data Source(s) COVID-19 VACCINE Moderna 02/09/2021 12:00:00 AM EDT completed [facility] Vaccine Series Complete: YESThis Data wa s Submitted to [facility] Via Sounds[employer]. COVID-19 VACCINE Moderna 01/12/2021 12:00:00 AM EDT completed [facility]IS Vaccine Series Complete: NOThis Data was Submitted to [facility] Via [facility]SIIS. Medications Medication Brand Name Start Date Product Form Dose Route Admi nistrative Instructions Pharmacy Instructions Status Indications Reaction Description Data Source(s) 24 HR venlafaxine 37.5 MG Extended Relea se Oral Capsule [Effexor] Effexor XR 37.5 MG Effexor XR 37.5 MG 11/04/2020 12:00:00 AM EST 1. 0 {capsule_in_the_morning} active Effexor XR 37.5 MG eCW1 ([facility]) Sprintec 28 0.25-35 MG-MCG Sprintec 28 0.25-35 MG-MCG 2020 12:00:00 AM EST 1.0 {tablet} active Sprintec 28 0.25-35 MG-MCG eCW1 ([facility]) Sprintec 28 0.25-35 MG-MCG Sprintec 28 0.25-35 MG-MCG 2020 12:00:00 AM EST 1.0 {tablet} active Sprintec 28 0.25-35 MG-MCG eCW1 ([facility]) 24 HR venlafaxine 37.5 MG Extended Relea se Oral Capsule [Effexor] Effexor XR 37.5 MG Effexor XR 37.5 MG 11/04/2020 12:00:00 AM EST 1. 0 {capsule_in_the_morning} active Effexor XR 37.5 MG eCW1 ([facility]) Sprintec 28 0.25-35 MG-MCG Sprintec 28 0.25-35 MG-MCG 2020 12:00:00 AM EST 1.0 {tablet} active Sprintec 28 0.25-35 MG-MCG eCW1 ([facility]) Sprintec 28 0.25-35 MG-MCG Sprintec 28 0.25-35 MG-MCG 2020 12:00:00 AM EST 1.0 {tablet} active Sprintec 28 0.25-35 MG-MCG eCW1 ([facility]) 24 HR venlafaxine 37.5 MG Extended Relea se Oral Capsule [Effexor] Effexor XR 37.5 MG Effexor XR 37.5 MG 11/04/2020 12:00:00 AM EST 1. 0 {capsule_in_the_morning} active Effexor XR 37.5 MG eCW1 ([facility]) 24 HR venlafaxine 37.5 MG Extended Relea se Oral Capsule [Effexor] Effexor XR 37.5 MG Effexor XR 37.5 MG 11/04/2020 12:00:00 AM EST 1. 0 {capsule_in_the_morning} active Effexor XR 37.5 MG eCW1 ([facility]) Sprintec 28 0.25-35 MG-MCG Sprintec 28 0.25-35 MG-MCG 2020 12:00:00 AM EST 1.0 {tablet} active Sprintec 28 0.25-35 MG-MCG eCW1 ([facility]) 24 HR venlafaxine 37.5 MG Extended Relea se Oral Capsule [Effexor] Effexor XR 37.5 MG Effexor XR 37.5 MG 11/04/2020 12:00:00 AM EST 1. 0 {capsule_in_the_morning} active Effexor XR 37.5 MG eCW1 ([facility]) Sprintec 28 0.25-35 MG-MCG Sprintec 28 0.25-35 MG-MCG 2020 12:00:00 AM EST 1.0 {tablet} active Sprintec 28 0.25-35 MG-MCG eCW1 ([facility]) Sprintec 28 0.25-35 MG-MCG Sprintec 28 0.25-35 MG-MCG 2020 12:00:00 AM EST 1.0 {tablet} active Sprintec 28 0.25-35 MG-MCG eCW1 ([facility]) 24 HR venlafaxine 37.5 MG Extended Relea se Oral Capsule [Effexor] Effexor XR 37.5 MG Effexor XR 37.5 MG 11/04/2020 12:00:00 AM EST 1. 0 {capsule_in_the_morning} active Effexor XR 37.5 MG eCW1 ([facility]) 24 HR venlafaxine 37.5 MG Extended Relea se Oral Capsule [Effexor] Effexor XR 37.5 MG Effexor XR 37.5 MG 11/04/2020 12:00:00 AM EST 1. 0 {capsule_in_the_morning} suspended Effex or XR 37.5 MG eCW1 ([facility]) 24 HR venlafaxine 37.5 MG Extended Relea se Oral Capsule [Effexor] Effexor XR 37.5 MG Effexor XR 37.5 MG 11/04/2020 12:00:00 AM EST 1. 0 {capsule_in_the_morning} active Effexor XR 37.5 MG eCW1 ([facility]) 24 HR venlafaxine 37.5 MG Extended Relea se Oral Capsule [Effexor] Effexor XR 37.5 MG Effexor XR 37.5 MG 11/04/2020 12:00:00 AM EST 1. 0 {capsule_in_the_morning} active Effexor XR 37.5 MG eCW1 ([facility]) 24 HR venlafaxine 37.5 MG Extended Relea se Oral Capsule [Effexor] Effexor XR 37.5 MG Effexor XR 37.5 MG 11/04/2020 12:00:00 AM EST 1. 0 {capsule_in_the_morning} active Effexor XR 37.5 MG eCW1 ([facility]) 24 HR venlafaxine 37.5 MG Extended Relea se Oral Capsule [Effexor] Effexor XR 37.5 MG Effexor XR 37.5 MG 11/04/2020 12:00:00 AM EST 1. 0 {capsule_in_the_morning} active Effexor XR 37.5 MG eCW1 ([facility]) 24 HR venlafaxine 37.5 MG Extended Relea se Oral Capsule [Effexor] Effexor XR 37.5 MG Effexor XR 37.5 MG 11/04/2020 12:00:00 AM EST 1. 0 {capsule_in_the_morning} active Effexor XR 37.5 MG eCW1 ([facility]) 24 HR venlafaxine 37.5 MG Extended Relea se Oral Capsule [Effexor] Effexor XR 37.5 MG Effexor XR 37.5 MG 11/04/2020 12:00:00 AM EST 1. 0 {capsule_in_the_morning} active Effexor XR 37.5 MG eCW1 ([facility]) Sprintec 28 0.25-35 MG-MCG Sprintec 28 0.25-35 MG-MCG 2020 12:00:00 AM EST 1.0 {tablet} active Sprintec 28 0.25-35 MG-MCG eCW1 ([facility]) 24 HR venlafaxine 37.5 MG Extended Relea se Oral Capsule [Effexor] Effexor XR 37.5 MG Effexor XR 37.5 MG 11/04/2020 12:00:00 AM EST 1. 0 {capsule_in_the_morning} active Effexor XR 37.5 MG eCW1 ([facility]) Sprintec 28 0.25-35 MG-MCG Sprintec 28 0.25-35 MG-MCG 2020 12:00:00 AM EST 1.0 {tablet} active Sprintec 28 0.25-35 MG-MCG eCW1 ([facility]) Sprintec 28 0.25-35 MG-MCG Sprintec 28 0.25-35 MG-MCG 2020 12:00:00 AM EST 1.0 {tablet} active Sprintec 28 0.25-35 MG-MCG eCW1 ([facility]) Sprintec 28 0.25-35 MG-MCG Sprintec 28 0.25-35 MG-MCG 2020 12:00:00 AM EST 1.0 {tablet} active Sprintec 28 0.25-35 MG-MCG eCW1 ([facility]) Sprintec 28 0.25-35 MG-MCG Sprintec 28 0.25-35 MG-MCG 2020 12:00:00 AM EST 1.0 {tablet} active Sprintec 28 0.25-35 MG-MCG eCW1 ([facility]) 24 HR venlafaxine 37.5 MG Extended Relea se Oral Capsule [Effexor] Effexor XR 37.5 MG Effexor XR 37.5 MG 11/04/2020 12:00:00 AM EST 1. 0 {capsule_in_the_morning} suspended Effex or XR 37.5 MG eCW1 ([facility]) Sprintec 28 0.25-35 MG-MCG Sprintec 28 0.25-35 MG-MCG 2020 12:00:00 AM EST 1.0 {tablet} active Sprintec 28 0.25-35 MG-MCG eCW1 ([facility]) 24 HR venlafaxine 37.5 MG Extended Relea se Oral Capsule [Effexor] Effexor XR 37.5 MG Effexor XR 37.5 MG 11/04/2020 12:00:00 AM EST 1. 0 {capsule_in_the_morning} active Effexor XR 37.5 MG eCW1 ([facility]) Sprintec 28 0.25-35 MG-MCG Sprintec 28 0.25-35 MG-MCG 2020 12:00:00 AM EST 1.0 {tablet} suspended Sprintec 28 0.25-35 MG-MCG eCW1 ([facility]) Sprintec 28 0.25-35 MG-MCG Sprintec 28 0.25-35 MG-MCG 2020 12:00:00 AM EST 1.0 {tablet} active Sprintec 28 0.25-35 MG-MCG eCW1 ([facility]) 24 HR venlafaxine 37.5 MG Extended Relea se Oral Capsule [Effexor] Effexor XR 37.5 MG Effexor XR 37.5 MG 11/04/2020 12:00:00 AM EST 1. 0 {capsule_in_the_morning} suspended Effex or XR 37.5 MG eCW1 ([facility]) 24 HR venlafaxine 37.5 MG Extended Relea se Oral Capsule [Effexor] Effexor XR 37.5 MG Effexor XR 37.5 MG 11/04/2020 12:00:00 AM EST 1. 0 {capsule_in_the_morning} active Effexor XR 37.5 MG eCW1 ([facility]) Sprintec 28 0.25-35 MG-MCG Sprintec 28 0.25-35 MG-MCG 2020 12:00:00 AM EST 1.0 {tablet} active Sprintec 28 0.25-35 MG-MCG eCW1 ([facility]) Insurance Providers Payer name Policy type / Coverage type Policy ID Covered republican ID Covered republican's relationship to hugo Policy Hugo Plan Information [facility] COMMUNITY [facility] [id number] 18 [id number] [facility] [place] [id number] 18 [id number] [facility] COMMUNITY PLAN MCDO [id number] SP [id number] [facility] COMMUNITY PLAN [place] [id number] 18 [id number] [facility] COMMUNITY PLAN XIX [id number] 18 [id number] [facility] Health Maintenance Organization (HMO) [id number] Self [id number] [employer] [facility] [id number] SP [id number] [facility] Health [facility] Organization (HMO) [id number] Self [id number] [facility] Health Maintenance Organization (HMO) [id number] Self [id number] [facility] Health Maintenance Organization (HMO) [id number] Self [id number] [facility] COMMUNITY PLAN MCDO [id number] SP [id number] [facility] Health Maintenance Organization (HMO) [id number] Self [id number] [facility] Health Maintenance Organization (HMO) [id number] Self [id number] [facility] Health Maintenance Organization (HMO) [id number] Self [id number] [facility] Health Maintenance Organization ([facility]) [id number] Self [id number] [facility] Health Maintenance [facility] ([facility]) [id number] Self [id number] [facility] COMMUNITY PLAN [facility] [id number] SP [id number] UN COMMUNITY PLAN [facility] [id number] SP [id number] [facility] Health Maintenance Organization ([facility]) [id number] Self [id number] [facility] Health Maintenance [facility] ([facility]) [id number] Self [id number] [employer] [place] PPO [id number] [facility] Health Maintenance Organization ([facility]) [id number] Self [id number] [employer] [id number] [employer] Health Maintenance [facility] ([facility]) [id number] Self [employer](MCAID) S [id number] C [id number] SELF PAY P UNAVAILABLE C UNAVAILA BLE O BLUE [id number] SP [id number] [facility] COMMUNITY PLAN [facility] [id number] SP [id number] MEDICAID [id number] SP [id number] [facility] COMMUNITY PLAN [facility] [id number] SP [id number] [employer](MCA[employer]) O [id number] S [id number] Problems, Conditions, and Diagnoses Code Display Name Description Problem Type Effective Dates Data Source(s) F90.9 [id number] Attention deficit hy peractivity disorder (ADHD), unspecified ADHD type Problem 04/25/2021 12:00:00 AM EDT eCW1 ([facility]) [id number] Near syncope Near syncope Problem 11/04/2020 12:00:00 A M EST MEDENT ([facility] ) [id number] Syncope and collapse Syncope and collapse Problem 11/04/2020 12:00:00 AM EST MEDENT ([facility] ) F41.1 [id number] Generalized anxiety disorder Problem 021 12:00:00 AM EST eCW1 ([facility]) F33.41 [id number] Recurrent major depressive disor sherri, in partial remission Problem 11/04/2020 12:00:00 AM EST eCW1 ([facility]) Surgeries/Procedures Procedure Description Date Indications Data Source(s) OFFICE OUTPATIENT VISIT 40 MINUTES 06/13/2021 12:00:00 AM EDT MEDENT ([facility] ) OFFICE OUTPATIENT VISIT 15 MINUTES 04/19/2021 12:00:00 AM EDT MEDENT ([facility]) Magnetic Resonance Angiogtaphy Head W/O Contrast Material(S) 11/23/2020 12:00:00 AM EDT MEDENT ([facility] Magnetic Resonance Angiogtaphy Head W/O Contrast Material(S) 11/23/2020 12:00:00 AM EDT MEDENT ([facility]) Magnetic Resonance Angiography Neck W/O Contrast Materials 11/23/2020 12:00:00 AM EDT MEDENT ([facility]) Magnetic Resonance Angiography Neck W/O Contrast Materials 11/23/2020 12:00:00 AM EDT MEDENT ([facility]) MRI BRAIN BRAIN STEM W/O CONTRAST MATERIAL 11/23/2020 12:00:00 AM EDT MEDENT ([facility] ) MRI BRAIN BRAIN STEM W/O CONTRAST MATERIAL 11/23/2020 12:00:00 AM EDT MEDENT ([facility] ) URINE TEST 11/04/2020 12:00:00 AM EST eCW1 ([facility]) Results ID Date Data Source [id number] 04/19/2021 12:00:00 AM EDT [facility] Name Value Range Interpretation Code Description Data Maureen rce(s) Supporting Document(s) SARS-CoV2 Rapid Antigen Negative [facility] This lab was reported by Jayson Olivia. ID Date Data Source PAP REQUEST FOR SERVICE 11/04/2020 12:00:00 AM EST eCW1 ([facility]) Name Value Range Interpretation Code Description Data Maureen rce(s) Supporting Document(s) PAP REQUEST FOR SERVICE eCW1 ( [facility]) ID Date Data Source [id number] 10/01/2020 12:30:00 PM EST [facility] Name Value Range Interpretation Code Description Data Maureen rce(s) Supporting Document(s) SARS-CoV-2 POSITIVE [facility] This lab was ordered by MITCHELL MOBLEY OWN [id number] and reported by [facility]. ID Date Data Source [id number] 10/01/2020 12:00:00 AM EST [facility] Name Value Range Interpretation Code Description Data Maureen rce(s) Supporting Document(s) SARS-CoV-2 RT-PCR positive [facility] This lab was ordered by [employer] and re ported by [employer]. Procedure Social History Code Duration Value Status Description Data Source(s ) Smoking 04/25/2021 12:00:00 AM EDT Current Smoker completed Curre nt Smoker eCW1 ([facility]) Smoking 04/25/2021 12:00:00 AM EDT Current Smoker completed Curre nt Smoker eCW1 ([facility]) Smoking 04/25/2021 12:00:00 AM EDT Current Smoker completed Curre nt Smoker eCW1 ([facility]) Smoking 02/19/2021 12:00:00 AM EDT Current Smoker completed Curre nt Smoker eCW1 ([facility]) Smoking 02/19/2021 12:00:00 AM EDT Current Smoker completed Curre nt Smoker eCW1 ([facility]) Smoking 11/22/2020 12:00:00 AM EDT Current Smoker completed Curre nt Smoker eCW1 ([facility]) Smoking 11/22/2020 12:00:00 AM EDT Current Smoker completed Curre nt Smoker eCW1 ([facility]) Smoking 11/22/2020 12:00:00 AM EDT Current Smoker completed Curre nt Smoker eCW1 ([facility]) Smoking 11/22/2020 12:00:00 AM EDT Current Smoker completed Curre nt Smoker eCW1 ([facility]) Smoking 11/22/2020 12:00:00 AM EDT Current Smoker completed Curre nt Smoker eCW1 ([facility]) Smoking 11/22/2020 12:00:00 AM EDT Current Smoker completed Curre nt Smoker eCW1 ([facility]) Smoking 11/11/2020 12:00:00 AM EST Current Smoker completed Curre nt Smoker eCW1 ([facility]) Smoking 11/11/2020 12:00:00 AM EST Current Smoker completed Curre nt Smoker eCW1 ([facility]) Smoking 11/11/2020 12:00:00 AM EST Current Smoker completed Curre nt Smoker eCW1 ([facility]) Smoking 11/11/2020 12:00:00 AM EST Current Smoker completed Curre nt Smoker eCW1 ([facility]) Smoking 11/11/2020 12:00:00 AM EST Current Smoker completed Curre nt Smoker eCW1 ([facility]) Smoking 11/04/2020 12:00:00 AM EST Current Smoker completed Curre nt Smoker eCW1 ([facility]) Smoking 11/04/2020 12:00:00 AM EST Current Smoker completed Curre nt Smoker eCW1 ([facility]) Smoking 10/17/2020 12:00:00 AM EST Current Smoker completed Curre nt Smoker eCW1 ([facility]) Smoking 10/17/2020 12:00:00 AM EST Current Smoker completed Curre nt Smoker eCW1 ([facility]) Smoking 09/29/2020 12:00:00 AM EST Former Smoker completed Former Smoker eCW1 ([facility]) Vital Signs ID Date Data Source UNK Name Value Range Interpretation Code Description Data Source(s) Body mass index (BMI) [Ratio] 20.2 kg/m2 20.2 k g/m2 MEDENT ([facility], ) Respiratory rate 12 /min 12 /min MEDENT ( [facility], ) Body height 63 [in_i] 63 [in_i] MEDENT ([facility], ) 5'3" Body weight 114.00 [lb_av] 114.00 [lb_av] MEDEN T ([facility], ) [place] body weight 115 [lb_av] 115 [lb_av] MEDEN T ([facility], ) Body weight 110 [lb_av] 110 [lb_av] eCW1 [facility] Body height 63 [in_i] 63 [in_i] eCW1 ([facility]) Body mass index (BMI) [Ratio] 19.48 kg/m2 19.48 kg/m2 eCW1 ([facility]) Heart rate 69 /min 69 /min eCW1 ([facility]) Respiratory rate 18 /min 18 /min eCW1 ([facility]) Body temperature 98.4 [degF] 98.4 [degF] eCW1 ( [facility]) Systolic blood pressure 102 mm[Hg] 102 mm[Hg] e CW1 ([facility]) Diastolic blood pressure 62 mm[Hg] 62 mm[Hg] eCW1 ([facility]) Body temperature 98.4 [degF] 98.4 [degF] MEDENT ([facility]) Body weight 110.00 [lb_av] 110.00 [lb_av] MEDEN T ([facility]) Body height 63 [in_i] 63 [in_i] MEDENT ([facility]) 5'3" Body mass index (BMI) [Ratio] 19.5 kg/m2 19.5 k g/m2 MEDENT ([facility]) Systolic blood pressure 113 mm[Hg] 113 mm[Hg] M EDENT ([facility]) Diastolic blood pressure 79 mm[Hg] 79 mm[Hg] MEDENT ([facility]) Heart rate 102 /min 102 /min MEDENT ([facility]) Respiratory rate 14 /min 14 /min MEDENT ( [facility]) Oxygen saturation in Arterial blood by Pulse oximetry 97 % 97 % MEDENT ([facility]) Respiratory rate 12 /min 12 /min MEDENT ( [facility] ) Body height 63 [in_i] 63 [in_i] MEDENT ([facility], ) 5'3" Body weight 114.00 [lb_av] 114.00 [lb_av] MEDEN T ([facility]) Body mass index (BMI) [Ratio] 20.2 kg/m2 20.2 k g/m2 MEDENT ([facility], ) [place] body weight 115 [lb_av] 115 [lb_av] MEDEN T ([facility]) Body weight 115 [lb_av] 115 [lb_av] eCW1 [facility] Body height 63 [in_i] 63 [in_i] eCW1 ([facility]) Body mass index (BMI) [Ratio] 20.37 kg/m2 20.37 kg/m2 eCW1 ([facility]) Heart rate 98 /min 98 /min eCW1 ([facility]) Respiratory rate 18 /min 18 /min eCW1 ([facility]) Body temperature 98 [degF] 98 [degF] eCW1 ([facility]) Systolic blood pressure 100 mm[Hg] 100 mm[Hg] e CW1 ([facility]) Diastolic blood pressure 58 mm[Hg] 58 mm[Hg] eCW1 ([facility]) Body weight 115.8 [lb_av] 115.8 [lb_av] eCW1 ([facility]) Body height 63 [in_i] 63 [in_i] eCW1 ([facility]) Body mass index (BMI) [Ratio] 20.51 kg/m2 20.51 kg/m2 eCW1 ([facility]) Systolic blood pressure 114 mm[Hg] 114 mm[Hg] e CW1 ([facility]) Diastolic blood pressure 64 mm[Hg] 64 mm[Hg] eCW1 ([facility]) Body mass index (BMI) [Ratio] 20.2 kg/m2 20.2 k g/m2 MEDENT ([facility], ) Respiratory rate 12 /min 12 /min MEDENT ( [facility], ) Body height 63 [in_i] 63 [in_i] MEDENT ([facility], ) 5'3" Body weight 114.00 [lb_av] 114.00 [lb_av] MEDEN T ([facility], ) [place] body weight 115 [lb_av] 115 [lb_av] MEDEN T ([facility], ) Body weight 114 [lb_av] 114 [lb_av] eCW1 ([facility]) Body height 63 [in_i] 63 [in_i] eCW1 ([facility]) Body mass index (BMI) [Ratio] 20.19 kg/m2 20.19 kg/m2 eCW1 ([facility]) Heart rate 83 /min 83 /min eCW1 ([facility]) Respiratory rate 18 /min 18 /min eCW1 ([facility]) Body temperature 97.4 [degF] 97.4 [degF] eCW1 ( [facility]) Systolic blood pressure 108 mm[Hg] 108 mm[Hg] e CW1 ([facility]) Diastolic blood pressure 68 mm[Hg] 68 mm[Hg] eCW1 ([facility]) Systolic blood pressure 118 mm[Hg] 118 mm[Hg] M EDENT ([facility], [facility]) Diastolic blood pressure 60 mm[Hg] 60 mm[Hg] MEDENT ([facility], [facility]) Heart rate 66 /min 66 /min MEDENT ([facility], [facility]) Respiratory rate 14 /min 14 /min MEDENT ( [facility], [facility]) Oxygen saturation in Arterial blood by Pulse oximetry 99 % 99 % MEDENT ([facility], [facility]) Body temperature 98.0 [degF] 98.0 [degF] MEDENT ([facility]) Body weight 130.00 [lb_av] 130.00 [lb_av] MEDEN T ([facility], [facility]) Body height 63 [in_i] 63 [in_i] MEDENT ([facility]) 5'3" Body mass index (BMI) [Ratio] 23.0 kg/m2 23.0 k g/m2 MEDENT ([facility], [facility]) Body temperature 98.7 [degF] 98.7 [degF] MEDENT ([facility], [facility]) Heart rate 85 /min 85 /min MEDENT ([facility], [facility]) Systolic blood pressure 119 mm[Hg] 119 mm[Hg] M EDENT ([facility], [facility]) Diastolic blood pressure 76 mm[Hg] 76 mm[Hg] MEDENT ([facility], [facility]) Respiratory rate 20 /min 20 /min [facility] ( [facility]) Oxygen saturation in Arterial blood by Pulse oximetry 98 % 98 % [facility] ([facility], [facility]) Body height 63 [in_i] 63 [in_i] MEDENT ([facility], [facility]) 5'3" Body mass index (BMI) [Ratio] 22.1 kg/m2 22.1 k g/m2 [facility] ([facility], [facility]) Body weight 125.00 [lb_av] 125.00 [lb_av] MEDEN T ([facility], [facility]) Patient Treatment Plan of Care Planned Activity Planned Date Details Description Data Source (s) 24 HR venlafaxine 37.5 MG Extended Release Oral Capsul e [Effexor] 11/04/2020 12:00:00 AM EST eCW1 ([facility]) 24 HR venlafaxine 37.5 MG Extended Release Oral Capsul e [Effexor] 11/04/2020 12:00:00 AM EST eCW1 ([facility]) 24 HR venlafaxine 37.5 MG Extended Release Oral Capsul e [Effexor] 11/04/2020 12:00:00 AM EST eCW1 ([facility]) Sprintec 28 0.25-35 MG-MCG 11/04/2020 12:00:00 AM EST eCW1 ([facility]) 24 HR venlafaxine 37.5 MG Extended Release Oral Capsul e [Effexor] 11/04/2020 12:00:00 AM EST eCW1 ([facility]) Sprintec 28 0.25-35 MG-MCG 11/04/2020 12:00:00 AM EST eCW1 ([facility]) 24 HR venlafaxine 37.5 MG Extended Release Oral Capsul e [Effexor] 11/04/2020 12:00:00 AM EST eCW1 ([facility])
[2021-07-24] MEDS ORDERED: NS 1,000 ML IV ONE (10:55)
[2021-07-24 11:30] LABS: BLOOD UREA NITROGEN 6 MG/DL (7-18); CALCIUM LEVEL 8.9 MG/DL (8.5-10.1); CARBON DIOXIDE LEVEL 27 MEQ/L (21-32); CHLORIDE LEVEL 107 MEQ/L (98-107); CREATININE FOR GFR 0.66 MG/DL (0.55-1.30); GLOMERULAR FILTRATION RATE > 60.0 (>60); GLUCOSE, FASTING 102 MG/DL (70-100); POTASSIUM SERUM 3.9 MEQ/L (3.5-5.1); SODIUM LEVEL 139 MEQ/L (136-145)
[2021-07-24 11:34] LABS: HEMATOCRIT 46.1 % (36.0-47.0); HEMOGLOBIN 15.1 g/dl (12.0-15.5); MEAN CORPUSCULAR HEMOGLOBIN 30.8 pg (27.0-33.0); MEAN CORPUSCULAR HGB CONC 32.8 g/dl (32.0-36.5); MEAN CORPUSCULAR VOLUME 93.9 fl (80.0-96.0); PLATELET COUNT, AUTOMATED 226 10^3/uL (150-450); RED BLOOD COUNT 4.91 10^6/uL (4.00-5.40); WHITE BLOOD COUNT 6.2 10^3/uL (4.0-10.0)
[2021-07-24 14:01] VITALS: BP 122/73
--- NOTE | 2021-07-24 18:28 | ECGEPIP ---
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
== END 2021-07-24 14:03 | disposition home or self-care (01) ==
LOC: M ED 09:10
DX: R55 Syncope and collapse (principal); I45.19 Other right bundle-branch block; F32.A Depression, unspecified; F41.9 Anxiety disorder, unspecified; F90.9 Attention-deficit hyperactivity disorder, unspecified type; F17.200 Nicotine dependence, unspecified, uncomplicated; Z88.0 Allergy status to penicillin

== ENCOUNTER → 2021-11-30 | Outpatient (CLI) | payer OTHER ==
[~2021-11-30] MED LIST changes: +DESV25TA PO
[2021-11-30 14:28] LABS: CHOLESTEROL RISK RATIO 3.763 (<5); FREE T4 0.96 NG/DL (0.76-1.46); THYROID STIMULATING HORMONE 0.535 uIU/ML (0.358-3.740)
[2021-11-30 15:22] LABS: HEMOGLOBIN A1c 5.6 %
== END ==
LOC: M PLALAB 12:00
PROVIDERS: ATTEND Psychiatry & Neurology Psychiatry
DX: F43.23 Adjustment disorder with mixed anxiety and depressed mood (principal)

== ENCOUNTER 2023-09-09 19:50 | Emergency (ER) | payer MEDICAID, OTHER ==
[~2023-09-09] VITALS: Ht 160 cm; Wt 51.8 kg
[~2023-09-09 19:50] MED LIST changes: +ETON68IM SC; -NEXP1IMP SC
[2023-09-09] MEDS ORDERED: ONDANSETRON 4MG 2ML VIAL IV ONE (20:45)
[2023-09-09 20:53] LABS: BASO # 0.1 10^3/uL (0.0-0.2); BASO % 0.3 % (0.0-1.0); HEMATOCRIT 42.9 % (36.0-47.0); HEMOGLOBIN 14.8 g/dl (12.0-15.5); LYMPH # 1.1 10^3/uL (1.5-5.0); LYMPH % 5.8 % (24.0-44.0); MEAN CORPUSCULAR HEMOGLOBIN 31.6 pg (27.0-33.0); MEAN CORPUSCULAR HGB CONC 34.5 g/dl (32.0-36.5); MEAN CORPUSCULAR VOLUME 91.5 fl (80.0-96.0); MONO # 0.4 10^3/uL (0.0-0.8); MONO % 2.3 % (2.0-8.0); NEUTROPHILS # 17.6 10^3/uL (1.5-8.5); NEUTROPHILS % 91.1 % (36.0-66.0); PLATELET COUNT, AUTOMATED 264 10^3/uL (150-450); RED BLOOD COUNT 4.69 10^6/uL (4.00-5.40); WHITE BLOOD COUNT 19.3 10^3/uL (4.0-10.0)
[2023-09-09] MEDS ORDERED: NS 1,000 ML IV ONE (20:55)
[2023-09-09 21:15] LABS: BLOOD UREA NITROGEN 10 MG/DL (9-23); CALCIUM LEVEL 8.9 MG/DL (8.5-10.1); CARBON DIOXIDE LEVEL 19 MMOL/L (20-31); CHLORIDE LEVEL 112 MMOL/L (98-107); CREATININE FOR GFR 0.59 MG/DL (0.55-1.30); GLOMERULAR FILTRATION RATE > 60.0 (>60); GLUCOSE, FASTING 139 MG/DL (60-100); POTASSIUM SERUM 3.8 MMOL/L (3.5-5.1); SODIUM LEVEL 145 MMOL/L (136-145)
[2023-09-09] MEDS ORDERED: PANTOPRAZOLE 40MG VIAL IV ONE (21:15)
[2023-09-09 21:27] LABS: HCG, SERUM QUALITATIVE NEGATIVE (NEGATIVE)
[2023-09-09] MEDS ORDERED: ISOVUE-370 76% 100ML VIAL As Ordered ONE (21:33)
[2023-09-09] MEDS ORDERED: PROMETHAZINE 25MG/ML 1ML VIAL IV ONE (21:40)
[2023-09-09 23:09] VITALS: BP 141/76; TEMP 97.3; O2SAT 100
[2023-09-09] MEDS ORDERED: ONDA4TAB6 PO (23:29)
[2023-09-09] MEDS ORDERED: OMEP1CAP73 PO (23:29)
== END 2023-09-09 23:33 | disposition home or self-care (01) ==
LOC: M ED 19:50
DX: K29.70 Gastritis, unspecified, without bleeding (principal); F10.129 Alcohol abuse with intoxication, unspecified; G90.A Postural orthostatic tachycardia syndrome [POTS]; Z88.0 Allergy status to penicillin
CPT/HCPCS: 74177; 80048; 84703; 85025; 96361; 96374; 96375; 99283; C9113; J2405; J2550; Q9967

== ENCOUNTER → 2024-11-19 | Outpatient (CLI) | payer OTHER ==
[~2024-11-19] MED LIST changes: +FLUO-365 PO; -FLUO20CA22 PO; +OMEP1CAP73 PO; +ONDA-282 PO
[2024-11-19 13:22] LABS: HEMOGLOBIN A1c 5.3 % (4.0-6.0)
== END ==
LOC: M EKG 11:29
PROVIDERS: ATTEND Nurse Practitioner Psychiatric/Mental Health
DX: F41.1 Generalized anxiety disorder (principal)

== ENCOUNTER → 2025-03-25 | Outpatient (REF) | payer OTHER ==
[~2025-03-25] MED LIST changes: +ATIV1TAB10 PO; +BUSP15TA47 PO; +GUAN1TAB17 PO; +HYDR-3363 PO; +HYDR-643; +LORAPOW30; +MIRT-11 PO; +PANT40TA29 PO; +PROP10TA56 PO; +SUCR1TA PO
[2025-03-25 18:06] LABS: BASO # 0.0 10^3/uL (0.0-0.2); BASO % 0.2 % (0.0-1.0); EOS # 0.0 10^3/uL (0.0-0.5); EOS % 0.5 % (0.0-3.0); LYMPH # 2.4 10^3/uL (1.5-5.0); LYMPH % 28.8 % (24.0-44.0); MONO # 0.7 10^3/uL (0.0-0.8); MONO % 7.8 % (2.0-8.0); NEUTROPHILS # 5.2 10^3/uL (1.5-8.5); NEUTROPHILS % 62.3 % (36.0-66.0); PLATELET COUNT, AUTOMATED 243 10^3/uL (150-450)
[2025-03-25 18:16] LABS: IRON (FE) 55 UG/DL (50-170); PERCENT SATURATION 20.1 % (13.2-45.0)
[2025-03-25 18:17] LABS: ALT/SGPT 23 U/L (7.0-40); AST/SGOT 17 U/L (<34); CALCIUM LEVEL 8.9 MG/DL (8.5-10.1); CARBON DIOXIDE LEVEL 27 MMOL/L (20-31); CHLORIDE LEVEL 105 MMOL/L (98-107); CHOLESTEROL LEVEL 159 MG/DL (<200); CHOLESTEROL RISK RATIO 3.36 (<5); CREATININE FOR GFR 0.75 MG/DL (0.55-1.30); FREE T4 1.15 NG/DL (0.89-1.76); GLOMERULAR FILTRATION RATE > 90.0 (>60); LDL CHOLESTEROL 94.2 MG/DL (<100); MAGNESIUM LEVEL 1.9 MG/DL (1.8-2.4); NON-HDL-C 111.8 MG/DL; POTASSIUM SERUM 4.1 MMOL/L (3.5-5.1); SODIUM LEVEL 143 MMOL/L (136-145); TRIGLYCERIDES LEVEL 88 MG/DL (<150)
[2025-03-25 18:18] LABS: RHEUMATOID FACTOR QUANT < 3.5 IU/ML (<14); TOTAL 25(OH) VITAMIN D 21.3 NG/ML (20.0-100.0)
[2025-03-25 18:19] LABS: VITAMIN B12 LEVEL 442 PG/ML (211-911)
[2025-03-25 18:21] LABS: THYROID PEROXIDASE ANTIBODY < 28.0 U/ML (<60.0)
[2025-03-25 18:27] LABS: ERYTHROCYTE SEDIMENTATION RATE 6 mm/hr (0-20)
[2025-03-25 18:43] LABS: HIV 1&2 SCREEN NEGATIVE (NEGATIVE)
[2025-03-25 18:50] LABS: HEPATITIS C VIRUS ABY INDEX < 0.02 INDEX (<0.8)
[2025-03-27 09:50] LABS: DRVV SCREEN 31.6 SECONDS
[2025-03-27 09:51] LABS: PTT LUPUS TYPE ANTICOAG SCREEN 0.83 (0-1.20)
[2025-03-30 20:02] LABS: LYME TOTAL ANTIBODY CIA <= 0.90 Index (<=0.90)
[2025-03-31 15:07] LABS: BARBITURATES SCREEN, URINE Negative ng/mL (Cutoff=200); BENZODIAZEPINES, URINE SCREEN Negative ng/mL (Cutoff=200); CANNABINOID, URINE Positive (Cutoff=20); CARBOXY THC (GC/MS) >300 ng/mL (Cutoff=10); CREATININE, URINE 187.3 mg/dL (20.0-300.0); METHADONE, URINE SCREEN Negative ng/mL (Cutoff=300); OPIATE SCREEN, URINE Negative ng/mL (Cutoff=300); OXYCODONE, SCREEN, URINE Negative ng/mL (Cutoff=100); PCP SCREEN, URINE Negative ng/mL (Cutoff=25)
[2025-04-02 20:21] LABS: VITAMIN B1 LEVEL WHOLE BLOOD 148 nmol/L (78-185)
== END ==
LOC: M SFHCADAM 14:39
PROVIDERS: ATTEND Physician Assistant Medical
DX: F41.1 Generalized anxiety disorder (principal); F33.41 Major depressive disorder, recurrent, in partial remission; F12.90 Cannabis use, unspecified, uncomplicated; K92.0 Hematemesis; R00.2 Palpitations; R55 Syncope and collapse; Z11.59 Encounter for screening for other viral diseases; Z11.4 Encounter for screening for human immunodeficiency virus [HIV]

== ENCOUNTER 2025-05-04 09:58 | Day surgery (SDC) | payer OTHER ==
[~2025-05-04] VITALS: Ht 160 cm; Wt 59.0 kg
[~2025-05-04 09:58] MED LIST changes: +DOCU100C16 PO; +HYDR-643 PO; +MIDO2.5T3 PO; +SENN8.6T28 PO; +VITA100093 PO
[2025-05-04] MEDS ORDERED: LIDOCAINE 2% 100 MG/5 ML SDV (FOR ANES.) As Ordered ONE (10:53)
[2025-05-04 11:50] VITALS: BP 118/73; O2SAT 100
== END 2025-05-04 12:01 | disposition home or self-care (01) ==
LOC: M OPP 09:58
PROVIDERS: ATTEND Surgery
DX: D12.5 Benign neoplasm of sigmoid colon (principal); K64.0 First degree hemorrhoids; K92.1 Melena; K29.70 Gastritis, unspecified, without bleeding; K92.0 Hematemesis; Z88.0 Allergy status to penicillin; Z88.1 Allergy status to other antibiotic agents; Z79.899 Other long term (current) drug therapy; J45.909 Unspecified asthma, uncomplicated; F17.290 Nicotine dependence, other tobacco product, uncomplicated